=== PATIENT | female | born 1945 | race Asian ===

== ENCOUNTER 2020-10-05 20:43 | Inpatient (IN) | payer OTHER, MEDICARE ==
[~2020-10-05] VITALS: Ht 157.5 cm; Wt 137.1 kg
[2020-10-05] MEDS ORDERED: ASPI-728 PO (21:19)
[2020-10-05] MEDS ORDERED: APIX5TAB PO (21:19)
[2020-10-05] MEDS ORDERED: LOSA25TA21 PO (21:19)
[2020-10-05] MEDS ORDERED: INSLAN SQ (21:19)
[2020-10-05] MEDS ORDERED: INSNOV SQ (21:19)
[2020-10-05] MEDS ORDERED: ATOR10TA84 PO (21:19)
[2020-10-05] MEDS ORDERED: LEVO75 PO (21:19)
[2020-10-05 21:38] LABS: BASOPHILS % (AUTO) 0.2 % (0.0-2.0); EOSINOPHILS % (AUTO) 0 % (1.0-6.0); HEMATOCRIT 38.7 % (36-46); HEMOGLOBIN 12.6 g/dL (12.0-16.0); LYMPHOCYTES # (AUTO) 0.4 K/uL (1.0-4.8); LYMPHOCYTES % (AUTO) 7.7 % (22.0-44.0); MEAN CORPUSCULAR HEMOGLOBIN 28.8 pg (26.0-34.0); MEAN CORPUSCULAR HGB CONC 32.5 G/dL (31.0-37.0); MEAN CORPUSCULAR VOLUME 89 fL (80-100); MONOCYTES # (AUTO) 0.4 K/uL (0.1-1.0); MONOCYTES % (AUTO) 8.3 % (2.0-9.0); NEUTROPHILS % (AUTO) 83.8 % (40.0-70.0); PLATELET COUNT (AUTO) 190 K/uL (150-450); RED BLOOD CELL COUNT(AUTO) 4.38 MIL/uL (4.00-5.20); RED CELL DISTRIBUTION WIDTH 14.3 % (11.5-14.5)
[2020-10-05 21:47] LABS: CALCIUM, TOTAL 8.1 mg/dL (8.8-10.5); CREATININE 1.69 mg/dL (0.60-1.30); POTASSIUM 4.5 mmol/L (3.5-5.1)
[2020-10-05 21:52] LABS: INR 1.1 (0.9-1.1); PROTHROMBIN TIME 11.2 SEC (9.4-11.6)
[2020-10-05 22:12] LABS: ALBUMIN 2.4 g/dL (3.4-5.0); BILIRUBIN,TOTAL 0.7 mg/dL (0.1-1.0); TOTAL PROTEIN, SERUM 7.4 g/dL (6.4-8.2)
[2020-10-05] MEDS ORDERED: CefTRIAXone 1 GM/DEXTROSE 50 ML IV ONE (22:15)
[2020-10-05] MEDS ORDERED: AZITHROMYCIN 500 MG/NS 250 ML IV ONE (22:15)
[2020-10-05] MEDS ORDERED: ALBUTEROL SULFATE HFA 90 MCG/PUFF 8 GM INHALER IH ONE (22:15)
[2020-10-05 22:46] LABS: ABG BASE EXCESS -4.9 mmol/L (-2.0-3.0); ABG CARBOXYHEMOGLOBIN 0.4 % (0.0-1.5); ABG HCO3 21.1 mmol/L (22.0-26.0); ABG METHEMOGLOBIN 0.2 % (0.0-1.5); ABG OXYGEN CONTENT 17.1 mL/dL (15.0-23.0); ABG OXYGEN SATURATION 90.5 % (95.0-98.0); ABG PCO2 31 mmHg (35-45); ABG PH 7.419 (7.35-7.450); ABG TOTAL HEMOGLOBIN 13.5 G/dL (12.0-18.0); PO2, ARTERIAL BG 60.7 mmHg (75.0-83.0); SOURCE, BLOOD GAS ARTERIAL; TEMPERATURE, FAHRENHEIT, BG 98.6 FAHREN (96.0-98.6)
[2020-10-05 22:47] LABS: O2 DEVICE,BLOOD GAS CANNULA (ROOM AIR); SITE, BLOOD GAS RT RADIAL
[2020-10-05 23:03] LABS: D-DIMER 0.43 mg/L FEU (0.00-0.50)
[2020-10-05 23:12] LABS: LACTIC ACID 3.1 mmol/L (0.4-2.0)
[2020-10-05] MEDS ORDERED: DEXAMETHASONE SOD PHOS 4 MG/ML VIAL IVP ONE (23:15)
[2020-10-05] MEDS ORDERED: SODIUM CHLORIDE 0.9% 2,450 ML IV ONE (23:15)
[2020-10-05 23:21] LABS: COVID AG,FIA SOURCE NASAL SWAB
[2020-10-05 23:39] LABS: INFLUENZA TYPE A NEGATIVE FOR TYPE A (NEGATIVE); INFLUENZA TYPE B NEGATIVE FOR TYPE B (NEGATIVE)
[2020-10-06] MEDS ORDERED: SODIUM CHLORIDE 0.45% 500 ML IV SCH (00:15)
[2020-10-06] MEDS ORDERED: ACETAMINOPHEN 325 MG TABLET PO PRN (00:15)
[2020-10-06] MEDS ORDERED: ONDANSETRON HCL 4 MG/2 ML VIAL IVP PRN (00:15)
[2020-10-06] MEDS ORDERED: DEXTROSE 50%-WATER 25 GM/50 ML SYRINGE IVP PRN (00:30)
[2020-10-06] MEDS ORDERED: INSULIN REGULAR, HUMAN 100 UNITS/ML IVP ONE (00:30)
[2020-10-06 01:22] LABS: GLUCOSE,POINT OF CARE 373 MG/DL (70-110)
[2020-10-06 04:04] LABS: GLUCOSE,POINT OF CARE 310 MG/DL (70-110)
[2020-10-06 04:04] LABS: GLUCOSE,POINT OF CARE 325 MG/DL (70-110)
[2020-10-06 05:33] LABS: APPEARANCE,URINE CLOUDY (CLEAR); BILIRUBIN,URINE NEGATIVE (NEGATIVE); CREATININE,URINE RANDOM 110.4 mg/dL (30.0-125.0); GLUCOSE, URINE (UA) >=1000 mg/dL (NEGATIVE); KETONES,URINE NEGATIVE (NEGATIVE); LEUKOCYTE ESTERASE ,URINE SMALL (NEGATIVE); NITRATE,URINE NEGATIVE (NEGATIVE); OCCULT BLOOD,URINE NEGATIVE (NEGATIVE); PROTEIN,URINE POS 1+ (NEGATIVE); UROBILINOGEN,URINE 0.2 mg/dL (<=1.0)
[2020-10-06 05:37] LABS: BACTERIA,URINE Few /HPF (None Seen); RBC,URINE 0-2 /HPF (0-2); SQUAMOUS EPITHELIAL CELL,UR Few /LPF (None Seen)
[2020-10-06] MEDS: LEVOTHYROXINE SODIUM 75 MCG TABLET PO SCH (06:21)
[2020-10-06] MEDS: INSULIN LISPRO 100 UNITS/ML SQ PRN ×3 (06:22→18:16)
[2020-10-06 07:07] LABS: GLUCOSE,POINT OF CARE 282 MG/DL (70-110)
[2020-10-06] MEDS: ATORVASTATIN CALCIUM 10 MG TABLET PO SCH (09:00)
[2020-10-06] MEDS ORDERED: LOSARTAN POTASSIUM 25 MG TABLET PO SCH (09:00)
[2020-10-06 09:18] LABS: D-DIMER 0.76 mg/L FEU (0.00-0.50); PROTHROMBIN TIME 10.7 SEC (9.4-11.6)
[2020-10-06] MEDS ORDERED: BENZONATATE 100 MG CAPSULE ONE (09:37)
[2020-10-06 09:38] LABS: LACTIC ACID 2.6 mmol/L (0.4-2.0)
[2020-10-06 09:42] LABS: C-REACTIVE PROTEIN QUANT 5.8 mg/dL (0.00-0.30)
[2020-10-06] MEDS: BENZONATATE 100 MG CAPSULE PO PRN ×2 (09:43→19:27)
[2020-10-06] MEDS: ASPIRIN 81 MG CHEWABLE TABLET PO SCH (09:43)
[2020-10-06] MEDS: FAMOTIDINE 10 MG/ML 2 ML VIAL IVP SCH (09:43)
[2020-10-06] MEDS: APIXABAN 5 MG TABLET PO SCH (09:43)
[2020-10-06 10:42] LABS: GLUCOSE,POINT OF CARE 307 MG/DL (70-110)
[2020-10-06] MEDS: INSULIN GLARGINE,HUM.REC.ANLOG 100 UNITS/ML SQ SCH (10:59)
[2020-10-06 12:59] LABS: GLUCOSE,POINT OF CARE 305 MG/DL (70-110)
[2020-10-06] MEDS: DEXAMETHASONE SOD PHOS 4 MG/ML VIAL IVP SCH (15:07)
[2020-10-06 15:50] LABS: ABG A-A DIFF O2 610.3 mmHg (10-20.0); ABG BASE EXCESS -9.4 mmol/L (-2.0-3.0); ABG CARBOXYHEMOGLOBIN 0.3 % (0.0-1.5); ABG METHEMOGLOBIN 0.3 % (0.0-1.5); ABG OXYGEN CONTENT 18.3 mL/dL (15.0-23.0); ABG OXYGEN SATURATION 94.3 % (95.0-98.0); ABG OXYHEMOGLOBIN 93.7 % (94.0-100.0); ABG PCO2 29 mmHg (35-45); ABG PH 7.361 (7.35-7.450); ABG TOTAL HEMOGLOBIN 13.9 G/dL (12.0-18.0); PO2, ARTERIAL BG 73.8 mmHg (75.0-83.0); SITE, BLOOD GAS LFT RADIAL; SOURCE, BLOOD GAS ARTERIAL; TEMPERATURE, FAHRENHEIT, BG 98.6 FAHREN (96.0-98.6)
[2020-10-06 15:51] LABS: O2 DEVICE,BLOOD GAS NON REBREATHER (ROOM AIR)
[2020-10-06 17:33] LABS: CALCIUM, TOTAL 7.7 mg/dL (8.8-10.5); CREATININE 1.26 mg/dL (0.60-1.30); POTASSIUM 4.6 mmol/L (3.5-5.1)
[2020-10-06 18:03] LABS: GLUCOSE,POINT OF CARE 283 MG/DL (70-110)
[2020-10-06] MEDS: LORazepam 0.5 MG TABLET PO PRN (19:27)
[2020-10-06] MEDS ORDERED: REMDESIVIR 200 MG in SODIUM CHLORIDE 0.9% 250 ML IV ONE (20:00)
[2020-10-06] MEDS ORDERED: LORazepam 2 MG/ML VIAL ONE (22:10)
[2020-10-06] MEDS ORDERED: LORazepam 2 MG/ML VIAL IVP PRN (22:15)
[2020-10-06] MEDS ORDERED: LORazepam 2 MG/ML VIAL IVP ONE (22:15)
[2020-10-07] VITALS (10 sets, daily range): BP systolic 111–144; BP diastolic 58–116
[2020-10-07] MEDS ORDERED: SODIUM CHLORIDE 0.9% 1,000 ML ONE (00:25)
[2020-10-07] MEDS: FAMOTIDINE 10 MG/ML 2 ML VIAL IVP SCH (01:10)
[2020-10-07] MEDS: AZITHROMYCIN 500 MG/NS 250 ML IV SCH (01:11)
[2020-10-07] MEDS: APIXABAN 5 MG TABLET PO SCH ×3 (01:11→21:00)
[2020-10-07] MEDS: ATORVASTATIN CALCIUM 10 MG TABLET PO SCH ×2 (01:11→21:00)
[2020-10-07] MEDS: ZINC SULFATE 220 MG CAPSULE PO SCH ×2 (01:11→21:00)
[2020-10-07] MEDS: CefTRIAXone 1 GM/DEXTROSE 50 ML IV SCH (01:12)
[2020-10-07] MEDS: LEVOTHYROXINE SODIUM 75 MCG TABLET PO SCH (06:17)
[2020-10-07] MEDS: INSULIN LISPRO 100 UNITS/ML SQ PRN (06:24)
[2020-10-07] MEDS: CHOLECALCIFEROL (VIT D3) 1,000 UNITS [25 MCG] TABLET PO SCH (08:20)
[2020-10-07] MEDS: FAMOTIDINE 20 MG TABLET PO SCH (08:21)
[2020-10-07] MEDS: ASCORBIC ACID 500 MG TABLET PO SCH (08:22)
[2020-10-07] MEDS: LORazepam 0.5 MG TABLET PO PRN (08:22)
[2020-10-07] MEDS: ASPIRIN 81 MG CHEWABLE TABLET PO SCH (08:22)
[2020-10-07] MEDS: DEXAMETHASONE SOD PHOS 4 MG/ML VIAL IVP SCH (08:23)
[2020-10-07] MEDS: INSULIN GLARGINE,HUM.REC.ANLOG 100 UNITS/ML SQ SCH (08:47)
[2020-10-07 11:15] LABS: GLUCOMETER DEV NAME(LOC) 5N.1B; GLUCOSE,POINT OF CARE 320 MG/DL (70-110)
[2020-10-07] MEDS ORDERED: LORazepam 2 MG/ML VIAL IM ONE (12:00)
[2020-10-07] MEDS ORDERED: ADENOSINE 3 MG/ML 2 ML VIAL IVP ONE (12:45)
[2020-10-07] MEDS ORDERED: DIGOXIN 250 MCG/ML 2 ML AMP ONE (13:04)
[2020-10-07] MEDS ORDERED: DIGOXIN 250 MCG/ML 2 ML AMP IVP ONE (13:15)
[2020-10-07] MEDS ORDERED: DILTIAZEM HCL 5 MG/ML 5 ML VIAL IVP ONE (13:15)
[2020-10-07] MEDS: DILTIAZEM HCL 125 MG in DEXTROSE 5%-WATER 100 ML IV SCH ×2 (13:54→20:46)
[2020-10-07 15:00] LABS: ABG A-A DIFF O2 506.5 mmHg (10-20.0); ABG BASE EXCESS -10.9 mmol/L (-2.0-3.0); ABG CARBOXYHEMOGLOBIN 0.5 % (0.0-1.5); ABG HCO3 17.2 mmol/L (22.0-26.0); ABG METHEMOGLOBIN 0.3 % (0.0-1.5); ABG OXYGEN CONTENT 17.4 mL/dL (15.0-23.0); ABG OXYGEN SATURATION 94.5 % (95.0-98.0); ABG OXYHEMOGLOBIN 93.7 % (94.0-100.0); ABG PCO2 25 mmHg (35-45); ABG PH 7.373 (7.35-7.450); ABG TOTAL HEMOGLOBIN 13.2 G/dL (12.0-18.0); PO2, ARTERIAL BG 73.4 mmHg (75.0-83.0); SITE, BLOOD GAS RT RADIAL; SOURCE, BLOOD GAS ARTERIAL; TEMPERATURE, FAHRENHEIT, BG 98.6 FAHREN (96.0-98.6)
[2020-10-07 15:01] LABS: O2 DEVICE,BLOOD GAS BIPAP (ROOM AIR)
[2020-10-07] MEDS ORDERED: FentaNYL CITRATE PF 100 MCG/2 ML VIAL IVP ONE (19:45)
[2020-10-07 19:51] LABS: ABG A-A DIFF O2 611.9 mmHg (10-20.0); ABG BASE EXCESS -15.3 mmol/L (-2.0-3.0); ABG CARBOXYHEMOGLOBIN 0.2 % (0.0-1.5); ABG HCO3 13.4 mmol/L (22.0-26.0); ABG METHEMOGLOBIN 0.2 % (0.0-1.5); ABG OXYGEN CONTENT 16.1 mL/dL (15.0-23.0); ABG OXYGEN SATURATION 87.6 % (95.0-98.0); ABG OXYHEMOGLOBIN 87.2 % (94.0-100.0); ABG PCO2 35 mmHg (35-45); ABG TOTAL HEMOGLOBIN 13.1 G/dL (12.0-18.0); PO2, ARTERIAL BG 65.9 mmHg (75.0-83.0); SOURCE, BLOOD GAS ARTERIAL; TEMPERATURE, FAHRENHEIT, BG 98.6 FAHREN (96.0-98.6)
[2020-10-07 19:52] LABS: ABG PH 7.185 (7.35-7.450)
[2020-10-07 19:53] LABS: O2 DEVICE,BLOOD GAS VENTILATOR (ROOM AIR); PEEP,BG 8 cm H2O; SITE, BLOOD GAS RT RADIAL; VT, ABG 450 ml
[2020-10-07] MEDS ORDERED: MIDAZOLAM HCL 2 MG/2 ML VIAL IVP PRN (20:15)
[2020-10-07] MEDS ORDERED: SODIUM CHLORIDE 0.9% 500 ML IV ONE (20:15)
[2020-10-07] MEDS ORDERED: INSULIN GLARGINE,HUM.REC.ANLOG 100 UNITS/ML SQ SCH (20:15)
[2020-10-07 20:16] LABS: GLUCOSE,POINT OF CARE 313 MG/DL (70-110)
[2020-10-07] MEDS ORDERED: DEXMEDETOMIDINE HCL 200 MCG in SODIUM CHLORIDE 0.9% 48 ML IV PRN ×2 (20:30→20:45)
[2020-10-07] MEDS ORDERED: PHENYLEPHRINE 200 MG/D5%-WATER 250 ML IV PRN (20:30)
[2020-10-07 20:34] LABS: ANION GAP 16 mmol/L (8-16); CARBON DIOXIDE 17 mmol/L (22-29); CHLORIDE 109 mmol/L (98-107); CREATININE 1.67 mg/dL (0.60-1.30); GLOMERULAR FILTR. RATE CALC 30 mL/min (>60); GLUCOSE,RANDOM 342 mg/dL (70-110); SODIUM SERUM 142 mmol/L (136-145); UREA NITROGEN, BLOOD 38 mg/dL (7-18)
[2020-10-07] MEDS ORDERED: AMIODARONE HCL 360 MG in DEXTROSE 5%-WATER 242.8 ML IV ONE (20:45)
[2020-10-07] MEDS: NOREPINEPHRINE 4 MG/D5%-WATER 250 ML IV PRN (20:47)
[2020-10-07] MEDS: FentaNYL CITRATE PF 500 MCG in DEXTROSE 5%-WATER 90 ML IV PRN (20:47)
[2020-10-07 20:48] LABS: LACTIC ACID 7.5 mmol/L (0.4-2.0)
[2020-10-07] MEDS ORDERED: SODIUM BICARBONATE 100 MEQ in DEXTROSE 5%-0.45% SODIUM CHL 1,000 ML IV SCH (21:00)
[2020-10-07] MEDS ORDERED: SODIUM BICARBONATE [ADULT] 8.4% 50 MEQ/50 ML SYRINGE IVP ONE (21:00)
[2020-10-07 21:11] LABS: ABG A-A DIFF O2 614.6 mmHg (10-20.0); ABG BASE EXCESS -10.7 mmol/L (-2.0-3.0); ABG CARBOXYHEMOGLOBIN 0.6 % (0.0-1.5); ABG HCO3 16.5 mmol/L (22.0-26.0); ABG METHEMOGLOBIN 0.3 % (0.0-1.5); ABG OXYGEN CONTENT 15.1 mL/dL (15.0-23.0); ABG OXYGEN SATURATION 86.3 % (95.0-98.0); ABG OXYHEMOGLOBIN 85.5 % (94.0-100.0); ABG PCO2 37 mmHg (35-45); ABG PH 7.263 (7.35-7.450); ABG TOTAL HEMOGLOBIN 12.6 G/dL (12.0-18.0); PO2, ARTERIAL BG 59.1 mmHg (75.0-83.0); SOURCE, BLOOD GAS ARTERIAL; TEMPERATURE, FAHRENHEIT, BG 100.2 FAHREN (96.0-98.6)
[2020-10-07] MEDS ORDERED: MAGNESIUM SULFATE 2 GM/WATER 50 ML IV PRN (21:45)
[2020-10-07] MEDS ORDERED: INSULIN GLARGINE,HUM.REC.ANLOG 100 UNITS/ML SQ ONE (21:45)
[2020-10-07] MEDS ORDERED: POTASSIUM CHLORIDE 20 MEQ ER TABLET PO PRN (21:45)
[2020-10-07] MEDS ORDERED: MAGNESIUM OXIDE 400 MG TABLET PO PRN (21:45)
[2020-10-07] MEDS: PHENYLEPHRINE 200 MG/D5%-WATER 250 ML IV PRN (21:45)
[2020-10-07] MEDS ORDERED: POTASSIUM CHL 10 MEQ/WATER 50 ML IV PRN (21:45)
[2020-10-07] MEDS ORDERED: MAGNESIUM SULFATE 4 GM/WATER 100 ML IV PRN (21:45)
[2020-10-07 21:47] LABS: O2 DEVICE,BLOOD GAS VENTILATOR (ROOM AIR); PEEP,BG 10 cm H2O; SITE, BLOOD GAS A LINE; VT, ABG 400 ml
[2020-10-07] MEDS ORDERED: LORazepam 1 MG TABLET PO PRN (22:35)
[2020-10-07 23:00] LABS: GLUCOMETER DEV NAME(LOC) 5S.1; GLUCOSE,POINT OF CARE 246 MG/DL (70-110)
[2020-10-07] MEDS: REMDESIVIR 100 MG in SODIUM CHLORIDE 0.9% 250 ML IV SCH (23:14)
[2020-10-08] VITALS (20 sets, daily range): BP systolic 81–147; BP diastolic 45–67
[2020-10-08] MEDS: CefTRIAXone 1 GM/DEXTROSE 50 ML IV SCH ×2 (00:01→22:11)
[2020-10-08] MEDS: PROPOFOL 1000 MG/ISO-OSM 100 ML IV PRN ×2 (00:03→04:59)
[2020-10-08 00:33] LABS: ABG A-A DIFF O2 576.1 mmHg (10-20.0); ABG CARBOXYHEMOGLOBIN 0.3 % (0.0-1.5); ABG HCO3 21.1 mmol/L (22.0-26.0); ABG METHEMOGLOBIN 0.3 % (0.0-1.5); ABG OXYGEN CONTENT 17.1 mL/dL (15.0-23.0); ABG OXYGEN SATURATION 96.4 % (95.0-98.0); ABG OXYHEMOGLOBIN 95.8 % (94.0-100.0); ABG PCO2 46 mmHg (35-45); ABG PH 7.308 (7.35-7.450); ABG TOTAL HEMOGLOBIN 12.6 G/dL (12.0-18.0); PO2, ARTERIAL BG 91.6 mmHg (75.0-83.0); SOURCE, BLOOD GAS ARTERIAL; TEMPERATURE, FAHRENHEIT, BG 98.5 FAHREN (96.0-98.6)
[2020-10-08] MEDS: AZITHROMYCIN 500 MG/NS 250 ML IV SCH ×2 (00:55→23:00)
[2020-10-08 01:01] LABS: O2 DEVICE,BLOOD GAS VENTILATOR (ROOM AIR); SITE, BLOOD GAS A LINE
[2020-10-08 01:02] LABS: PEEP,BG 12 cm H2O; VT, ABG 400 ml
[2020-10-08] MEDS ORDERED: DEXMEDETOMIDINE HCL 400 MCG in SODIUM CHLORIDE 0.9% 96 ML IV PRN (02:15)
[2020-10-08] MEDS: FentaNYL CITRATE PF 500 MCG in DEXTROSE 5%-WATER 90 ML IV PRN ×3 (02:58→18:03)
[2020-10-08 04:08] LABS: GLUCOSE,POINT OF CARE 393 MG/DL (70-110)
[2020-10-08] MEDS: INSULIN LISPRO 100 UNITS/ML SQ PRN ×3 (05:28→18:21)
[2020-10-08 05:42] LABS: GLUCOSE,POINT OF CARE 374 MG/DL (70-110)
[2020-10-08 05:59] LABS: BASOPHILS % (AUTO) 0.2 % (0.0-2.0); EOSINOPHILS % (AUTO) 0 % (1.0-6.0); HEMATOCRIT 35.7 % (36-46); HEMOGLOBIN 11.5 g/dL (12.0-16.0); LYMPHOCYTES # (AUTO) 0.7 K/uL (1.0-4.8); MEAN CORPUSCULAR HEMOGLOBIN 28.7 pg (26.0-34.0); MEAN CORPUSCULAR HGB CONC 32.2 G/dL (31.0-37.0); MEAN CORPUSCULAR VOLUME 89 fL (80-100); MONOCYTES # (AUTO) 0.7 K/uL (0.1-1.0); MONOCYTES % (AUTO) 4.1 % (2.0-9.0); NEUTROPHILS # (AUTO) 15.3 K/uL (1.8-7.7); PLATELET COUNT (AUTO) 300 K/uL (150-450); RED CELL DISTRIBUTION WIDTH 14.6 % (11.5-14.5)
[2020-10-08 06:14] LABS: NEUTROPHILS % (AUTO) 91.7 % (40.0-70.0)
[2020-10-08] MEDS: LEVOTHYROXINE SODIUM 75 MCG TABLET PO SCH (06:30)
[2020-10-08] MEDS: INSULIN GLARGINE,HUM.REC.ANLOG 100 UNITS/ML SQ SCH ×2 (06:34→19:47)
[2020-10-08 06:56] LABS: ALBUMIN 2.1 g/dL (3.4-5.0); BILIRUBIN,TOTAL 0.5 mg/dL (0.1-1.0); C-REACTIVE PROTEIN QUANT 8.01 mg/dL (0.00-0.30); CALCIUM, TOTAL 7.3 mg/dL (8.8-10.5); CREATININE 1.59 mg/dL (0.60-1.30); MAGNESIUM 2.4 mg/dL (1.80-2.40); POTASSIUM 5.9 mmol/L (3.5-5.1); TOTAL PROTEIN, SERUM 6.4 g/dL (6.4-8.2)
[2020-10-08 07:24] LABS: GLUCOMETER DEV NAME(LOC) 5N.3; GLUCOSE,POINT OF CARE 276 MG/DL (70-110)
[2020-10-08] MEDS ORDERED: SODIUM POLYSTYRENE SULFONATE 15 GM/60 ML SUSPENSION BOTTLE PR ONE (07:45)
[2020-10-08] MEDS ORDERED: FUROSEMIDE 20 MG/2 ML VIAL IVP ONE (08:00)
[2020-10-08] MEDS ORDERED: SODIUM ZIRCONIUM CYCLOSILICATE 5 GM POWDER PACKET GT ONE (08:00)
[2020-10-08] MEDS ORDERED: DEXTROSE 50%-WATER 25 GM/50 ML SYRINGE IVP ONE (08:00)
[2020-10-08] MEDS ORDERED: SODIUM POLYSTYRENE SULFONATE 15 GM/60 ML SUSPENSION BOTTLE PO ONE (08:00)
[2020-10-08] MEDS ORDERED: INSULIN REGULAR, HUMAN 100 UNITS/ML IVP ONE (08:00)
[2020-10-08] MEDS ORDERED: SODIUM POLYSTYRENE SULFONATE 15 GM/60 ML SUSPENSION BOTTLE NG ONE (08:00)
[2020-10-08] MEDS ORDERED: HEPARIN SODIUM,PORCINE 5,000 UNITS/ML VIAL IVP PRN ×2 (08:00)
[2020-10-08 08:26] LABS: BASOPHILS % (AUTO) 0.1 % (0.0-2.0); LYMPHOCYTES # (AUTO) 0.8 K/uL (1.0-4.8)
[2020-10-08 08:40] LABS: INR 1.2 (0.9-1.1); PROTHROMBIN TIME 12.6 SEC (9.4-11.6)
[2020-10-08 08:43] LABS: EOSINOPHILS % (AUTO) 0 % (1.0-6.0); HEMOGLOBIN 11.9 g/dL (12.0-16.0); LYMPHOCYTES % (AUTO) 4.8 % (22.0-44.0); MEAN CORPUSCULAR HEMOGLOBIN 28.2 pg (26.0-34.0); MEAN CORPUSCULAR HGB CONC 31.3 G/dL (31.0-37.0); MEAN CORPUSCULAR VOLUME 90 fL (80-100); MONOCYTES # (AUTO) 0.6 K/uL (0.1-1.0); MONOCYTES % (AUTO) 3.3 % (2.0-9.0); NEUTROPHILS # (AUTO) 15.7 K/uL (1.8-7.7); PLATELET COUNT (AUTO) 292 K/uL (150-450); RED BLOOD CELL COUNT(AUTO) 4.21 MIL/uL (4.00-5.20); RED CELL DISTRIBUTION WIDTH 14.6 % (11.5-14.5)
[2020-10-08 08:44] LABS: NEUTROPHILS % (AUTO) 91.8 % (40.0-70.0)
[2020-10-08] MEDS: ASCORBIC ACID 500 MG TABLET PO SCH (09:00)
[2020-10-08] MEDS: METOPROLOL SUCCINATE 25 MG ER TABLET PO SCH ×2 (09:00→20:54)
[2020-10-08] MEDS: CHOLECALCIFEROL (VIT D3) 1,000 UNITS [25 MCG] TABLET PO SCH (09:00)
[2020-10-08] MEDS: CHLORHEXIDINE GLUCONATE 0.12% 15 ML UDCUP ORAL RINSE MM SCH ×2 (09:00→20:54)
[2020-10-08] MEDS: DEXAMETHASONE SOD PHOS 4 MG/ML VIAL IVP SCH (09:09)
[2020-10-08] MEDS: ASPIRIN 81 MG CHEWABLE TABLET PO SCH (09:13)
[2020-10-08] MEDS: FAMOTIDINE 20 MG TABLET PO SCH (09:14)
[2020-10-08] MEDS: HEPARIN SODIUM 25000 UNITS/D5W 250 ML IV PRN (09:47)
[2020-10-08 10:19] LABS: GLUCOSE,POINT OF CARE 337 MG/DL (70-110)
[2020-10-08 12:35] LABS: CREATININE 1.56 mg/dL (0.60-1.30); POTASSIUM 4.8 mmol/L (3.5-5.1)
[2020-10-08] MEDS ORDERED: DEXTROSE 50%-WATER 25 GM/50 ML SYRINGE IVP PRN (13:00)
[2020-10-08 13:31] LABS: GLUCOMETER DEV NAME(LOC) AHU.; GLUCOSE,POINT OF CARE 353 MG/DL (70-110)
[2020-10-08] MEDS: SODIUM BICARBONATE 75 MEQ in SODIUM CHLORIDE 0.45% 1,000 ML IV SCH (16:33)
[2020-10-08 18:04] LABS: GLUCOMETER DEV NAME(LOC) AHU.; GLUCOSE,POINT OF CARE 276 MG/DL (70-110)
[2020-10-08 18:37] LABS: OCCULT BLOOD,GASTRIC FLUID POSITIVE (NEGATIVE)
[2020-10-08] MEDS: REMDESIVIR 100 MG in SODIUM CHLORIDE 0.9% 250 ML IV SCH (20:46)
[2020-10-08] MEDS: ATORVASTATIN CALCIUM 10 MG TABLET PO SCH (20:54)
[2020-10-08] MEDS: ZINC SULFATE 220 MG CAPSULE PO SCH (20:55)
[2020-10-09] VITALS (25 sets, daily range): BP systolic 104–187; BP diastolic 34–76
[2020-10-09] MEDS: PROPOFOL 1000 MG/ISO-OSM 100 ML IV PRN ×4 (00:01→16:39)
[2020-10-09 00:42] LABS: CREATININE 1.38 mg/dL (0.60-1.30); POTASSIUM 3.9 mmol/L (3.5-5.1)
[2020-10-09 01:01] LABS: LACTIC ACID 3.2 mmol/L (0.4-2.0)
[2020-10-09] MEDS: SODIUM BICARBONATE 75 MEQ in SODIUM CHLORIDE 0.45% 1,000 ML IV SCH (02:05)
[2020-10-09 04:04] LABS: ABG A-A DIFF O2 624.9 mmHg (10-20.0); ABG BASE EXCESS -0.9 mmol/L (-2.0-3.0); ABG CARBOXYHEMOGLOBIN 0.3 % (0.0-1.5); ABG HCO3 23.4 mmol/L (22.0-26.0); ABG METHEMOGLOBIN 0.1 % (0.0-1.5); ABG OXYGEN CONTENT 13.5 mL/dL (15.0-23.0); ABG OXYGEN SATURATION 85.3 % (95.0-98.0); ABG PCO2 42 mmHg (35-45); ABG PH 7.382 (7.35-7.450); ABG TOTAL HEMOGLOBIN 11.3 G/dL (12.0-18.0); SOURCE, BLOOD GAS ARTERIAL; TEMPERATURE, FAHRENHEIT, BG 97.5 FAHREN (96.0-98.6)
[2020-10-09 05:48] LABS: SITE, BLOOD GAS ARTERIAL LINE
[2020-10-09 05:49] LABS: O2 DEVICE,BLOOD GAS VENTILATOR (ROOM AIR); PEEP,BG 10 cm H2O; VENT MODE, BG Press. Control Vent (ROOM AIR); VT, ABG 400 ml
[2020-10-09] MEDS: NOREPINEPHRINE 4 MG/D5%-WATER 250 ML IV PRN (05:52)
[2020-10-09 06:24] LABS: GLUCOMETER DEV NAME(LOC) AHU.; GLUCOSE,POINT OF CARE 198 MG/DL (70-110)
[2020-10-09] MEDS: LEVOTHYROXINE SODIUM 75 MCG TABLET PO SCH (06:30)
[2020-10-09] MEDS: INSULIN GLARGINE,HUM.REC.ANLOG 100 UNITS/ML SQ SCH ×2 (06:39→21:27)
[2020-10-09] MEDS: INSULIN LISPRO 100 UNITS/ML SQ PRN (06:40)
[2020-10-09 06:52] LABS: BASOPHILS % (AUTO) 0.1 % (0.0-2.0); EOSINOPHILS % (AUTO) 0 % (1.0-6.0); HEMATOCRIT 34.5 % (36-46); HEMOGLOBIN 11.2 g/dL (12.0-16.0); LYMPHOCYTES # (AUTO) 0.9 K/uL (1.0-4.8); LYMPHOCYTES % (AUTO) 5.6 % (22.0-44.0); MEAN CORPUSCULAR HGB CONC 32.4 G/dL (31.0-37.0); MEAN CORPUSCULAR VOLUME 90 fL (80-100); MONOCYTES # (AUTO) 0.4 K/uL (0.1-1.0); MONOCYTES % (AUTO) 2.6 % (2.0-9.0); NEUTROPHILS # (AUTO) 14.2 K/uL (1.8-7.7); PLATELET COUNT (AUTO) 232 K/uL (150-450); RED BLOOD CELL COUNT(AUTO) 3.85 MIL/uL (4.00-5.20); RED CELL DISTRIBUTION WIDTH 14.5 % (11.5-14.5)
[2020-10-09 07:01] LABS: NEUTROPHILS % (AUTO) 91.7 % (40.0-70.0)
[2020-10-09 07:14] LABS: ALBUMIN 1.9 g/dL (3.4-5.0); BILIRUBIN,TOTAL 0.5 mg/dL (0.1-1.0); CALCIUM, TOTAL 6.7 mg/dL (8.8-10.5); CREATININE 1.32 mg/dL (0.60-1.30); MAGNESIUM 2.2 mg/dL (1.80-2.40); POTASSIUM 3.9 mmol/L (3.5-5.1); TOTAL PROTEIN, SERUM 5.9 g/dL (6.4-8.2)
[2020-10-09] MEDS: FentaNYL CITRATE PF 500 MCG in DEXTROSE 5%-WATER 90 ML IV PRN ×2 (08:00→20:15)
[2020-10-09 08:17] LABS: ABG A-A DIFF O2 649.7 mmHg (10-20.0); ABG BASE EXCESS -1.6 mmol/L (-2.0-3.0); ABG CARBOXYHEMOGLOBIN 0.3 % (0.0-1.5); ABG METHEMOGLOBIN 0.2 % (0.0-1.5); ABG OXYGEN CONTENT 10.6 mL/dL (15.0-23.0); ABG OXYHEMOGLOBIN 62.7 % (94.0-100.0); ABG PCO2 34 mmHg (35-45); ABG PH 7.444 (7.35-7.450); SOURCE, BLOOD GAS ARTERIAL; TEMPERATURE, FAHRENHEIT, BG 98.6 FAHREN (96.0-98.6)
[2020-10-09] MEDS ORDERED: DEXTROSE 5%-WATER 1,000 ML IV ONE (08:30)
[2020-10-09 08:44] LABS: PO2, ARTERIAL BG 29.7 mmHg (75.0-83.0)
[2020-10-09 08:45] LABS: O2 DEVICE,BLOOD GAS BAG VALVE MASK (ROOM AIR); SITE, BLOOD GAS ARTERIAL LINE
[2020-10-09] MEDS: METOPROLOL SUCCINATE 25 MG ER TABLET PO SCH ×2 (09:00→21:25)
[2020-10-09] MEDS ORDERED: SODIUM ZIRCONIUM CYCLOSILICATE 5 GM POWDER PACKET PO SCH (09:00)
[2020-10-09] MEDS: FAMOTIDINE 20 MG TABLET PO SCH (09:00)
[2020-10-09] MEDS: ASCORBIC ACID 500 MG TABLET PO SCH (09:00)
[2020-10-09] MEDS: CHOLECALCIFEROL (VIT D3) 1,000 UNITS [25 MCG] TABLET PO SCH (09:00)
[2020-10-09] MEDS: ASPIRIN 81 MG CHEWABLE TABLET PO SCH (09:00)
[2020-10-09] MEDS: CHLORHEXIDINE GLUCONATE 0.12% 15 ML UDCUP ORAL RINSE MM SCH ×2 (09:00→21:00)
[2020-10-09 09:30] LABS: ABG A-A DIFF O2 620.8 mmHg (10-20.0); ABG BASE EXCESS -0.6 mmol/L (-2.0-3.0); ABG CARBOXYHEMOGLOBIN 0.3 % (0.0-1.5); ABG HCO3 24.2 mmol/L (22.0-26.0); ABG METHEMOGLOBIN 0.1 % (0.0-1.5); ABG OXYGEN CONTENT 15.3 mL/dL (15.0-23.0); ABG OXYGEN SATURATION 93.5 % (95.0-98.0); ABG OXYHEMOGLOBIN 93.1 % (94.0-100.0); ABG PCO2 34 mmHg (35-45); ABG PH 7.452 (7.35-7.450); ABG TOTAL HEMOGLOBIN 11.7 G/dL (12.0-18.0); PO2, ARTERIAL BG 60.7 mmHg (75.0-83.0); SOURCE, BLOOD GAS ARTERIAL; TEMPERATURE, FAHRENHEIT, BG 96.6 FAHREN (96.0-98.6)
[2020-10-09 09:42] LABS: O2 DEVICE,BLOOD GAS VENTILATOR (ROOM AIR); SITE, BLOOD GAS ARTERIAL LINE; VT, ABG 400 ml
[2020-10-09 09:43] LABS: PEEP,BG 10 cm H2O
[2020-10-09] MEDS: DEXAMETHASONE SOD PHOS 4 MG/ML VIAL IVP SCH (10:27)
[2020-10-09] MEDS: HEPARIN SODIUM 25000 UNITS/D5W 250 ML IV PRN (10:40)
[2020-10-09] MEDS: PANTOPRAZOLE SODIUM 40 MG/VIAL IVP SCH (12:43)
[2020-10-09 12:59] LABS: GLUCOMETER DEV NAME(LOC) AHU.; GLUCOSE,POINT OF CARE 126 MG/DL (70-110)
[2020-10-09] MEDS: DILTIAZEM HCL 125 MG in DEXTROSE 5%-WATER 100 ML IV SCH (13:15)
[2020-10-09 15:47] LABS: ABG A-A DIFF O2 618.8 mmHg (10-20.0); ABG BASE EXCESS 0.5 mmol/L (-2.0-3.0); ABG CARBOXYHEMOGLOBIN 0.3 % (0.0-1.5); ABG HCO3 24.9 mmol/L (22.0-26.0); ABG METHEMOGLOBIN 0.1 % (0.0-1.5); ABG OXYGEN CONTENT 14.4 mL/dL (15.0-23.0); ABG OXYGEN SATURATION 92.5 % (95.0-98.0); ABG OXYHEMOGLOBIN 92.1 % (94.0-100.0); ABG PCO2 38 mmHg (35-45); ABG PH 7.436 (7.35-7.450); ABG TOTAL HEMOGLOBIN 11.1 G/dL (12.0-18.0); PO2, ARTERIAL BG 59.2 mmHg (75.0-83.0); SOURCE, BLOOD GAS ARTERIAL; TEMPERATURE, FAHRENHEIT, BG 96.8 FAHREN (96.0-98.6)
[2020-10-09 15:49] LABS: O2 DEVICE,BLOOD GAS VENTILATOR (ROOM AIR); PEEP,BG 10 cm H2O; SITE, BLOOD GAS ARTERIAL LINE; VT, ABG 400 ml
[2020-10-09 19:03] LABS: GLUCOMETER DEV NAME(LOC) AHU.; GLUCOSE,POINT OF CARE 115 MG/DL (70-110)
[2020-10-09 21:14] LABS: GLUCOMETER DEV NAME(LOC) AHU.; GLUCOSE,POINT OF CARE 128 MG/DL (70-110)
[2020-10-09] MEDS: ATORVASTATIN CALCIUM 10 MG TABLET PO SCH (21:22)
[2020-10-09] MEDS: ZINC SULFATE 220 MG CAPSULE PO SCH (21:22)
[2020-10-09] MEDS: REMDESIVIR 100 MG in SODIUM CHLORIDE 0.9% 250 ML IV SCH (21:36)
[2020-10-09] MEDS: CefTRIAXone 1 GM/DEXTROSE 50 ML IV SCH (22:56)
[2020-10-09] MEDS: AZITHROMYCIN 500 MG/NS 250 ML IV SCH (23:30)
[2020-10-10] VITALS (27 sets, daily range): BP systolic 117–187; BP diastolic 45–65
[2020-10-10 03:17] LABS: GLUCOMETER DEV NAME(LOC) AHU.; GLUCOSE,POINT OF CARE 125 MG/DL (70-110)
[2020-10-10] MEDS ORDERED: APIXABAN 5 MG TABLET GT SCH (05:00)
[2020-10-10] MEDS: FentaNYL CITRATE PF 500 MCG in DEXTROSE 5%-WATER 90 ML IV PRN ×3 (05:53→19:46)
[2020-10-10] MEDS: LEVOTHYROXINE SODIUM 75 MCG TABLET PO SCH (06:01)
[2020-10-10] MEDS: INSULIN GLARGINE,HUM.REC.ANLOG 100 UNITS/ML SQ SCH ×2 (06:03→21:01)
[2020-10-10 06:30] LABS: GLUCOMETER DEV NAME(LOC) AHU.; GLUCOSE,POINT OF CARE 138 MG/DL (70-110)
[2020-10-10] MEDS: PROPOFOL 1000 MG/ISO-OSM 100 ML IV PRN ×3 (07:12→21:16)
[2020-10-10] MEDS: METOPROLOL SUCCINATE 25 MG ER TABLET PO SCH (09:00)
[2020-10-10] MEDS: CHLORHEXIDINE GLUCONATE 0.12% 15 ML UDCUP ORAL RINSE MM SCH ×2 (09:00→21:00)
[2020-10-10 09:35] LABS: BASOPHILS % (AUTO) 0.4 % (0.0-2.0); EOSINOPHILS % (AUTO) 0 % (1.0-6.0); HEMATOCRIT 30.4 % (36-46); HEMOGLOBIN 9.9 g/dL (12.0-16.0); LYMPHOCYTES # (AUTO) 0.5 K/uL (1.0-4.8); LYMPHOCYTES % (AUTO) 4.5 % (22.0-44.0); MEAN CORPUSCULAR HEMOGLOBIN 28.6 pg (26.0-34.0); MEAN CORPUSCULAR HGB CONC 32.4 G/dL (31.0-37.0); MEAN CORPUSCULAR VOLUME 88 fL (80-100); MONOCYTES # (AUTO) 0.3 K/uL (0.1-1.0); NEUTROPHILS # (AUTO) 10.2 K/uL (1.8-7.7); PLATELET COUNT (AUTO) 177 K/uL (150-450); RED BLOOD CELL COUNT(AUTO) 3.45 MIL/uL (4.00-5.20); RED CELL DISTRIBUTION WIDTH 14.5 % (11.5-14.5)
[2020-10-10 09:37] LABS: NEUTROPHILS % (AUTO) 92.1 % (40.0-70.0)
[2020-10-10 09:48] LABS: ALBUMIN 1.6 g/dL (3.4-5.0); BILIRUBIN,TOTAL 0.4 mg/dL (0.1-1.0); C-REACTIVE PROTEIN QUANT 6.1 mg/dL (0.00-0.30); CALCIUM, TOTAL 6.8 mg/dL (8.8-10.5); CREATININE 1.12 mg/dL (0.60-1.30); MAGNESIUM 2.3 mg/dL (1.80-2.40); POTASSIUM 3.6 mmol/L (3.5-5.1); TOTAL PROTEIN, SERUM 5.1 g/dL (6.4-8.2)
[2020-10-10 10:49] LABS: GLUCOMETER DEV NAME(LOC) AHU.; GLUCOSE,POINT OF CARE 105 MG/DL (70-110)
[2020-10-10] MEDS: APIXABAN 5 MG TABLET GT SCH ×2 (10:52→22:03)
[2020-10-10] MEDS: DEXAMETHASONE SOD PHOS 4 MG/ML VIAL IVP SCH (10:53)
[2020-10-10] MEDS: PANTOPRAZOLE SODIUM 40 MG/VIAL IVP SCH (10:53)
[2020-10-10] MEDS: ASPIRIN 81 MG CHEWABLE TABLET PO SCH (10:53)
[2020-10-10] MEDS: ASCORBIC ACID 500 MG TABLET PO SCH (10:54)
[2020-10-10] MEDS: CHOLECALCIFEROL (VIT D3) 1,000 UNITS [25 MCG] TABLET PO SCH (10:54)
[2020-10-10] MEDS: FAMOTIDINE 20 MG TABLET PO SCH (10:54)
[2020-10-10] MEDS: DILTIAZEM HCL 125 MG in DEXTROSE 5%-WATER 100 ML IV SCH (13:15)
[2020-10-10] MEDS ORDERED: CISATRACURIUM BESYLATE 2 MG/ML 10 ML VIAL IVP ONE (13:30)
[2020-10-10] MEDS: CISATRACURIUM BESYLATE 50 MG in DEXTROSE 5%-WATER 245 ML IV PRN ×2 (14:17→19:45)
[2020-10-10 15:21] LABS: GLUCOMETER DEV NAME(LOC) AHU.; GLUCOSE,POINT OF CARE 117 MG/DL (70-110)
[2020-10-10 17:35] LABS: ABG BASE EXCESS 1.4 mmol/L (-2.0-3.0); ABG CARBOXYHEMOGLOBIN 0.3 % (0.0-1.5); ABG HCO3 25.6 mmol/L (22.0-26.0); ABG METHEMOGLOBIN 0.3 % (0.0-1.5); ABG OXYGEN CONTENT 16.5 mL/dL (15.0-23.0); ABG OXYGEN SATURATION 99.4 % (95.0-98.0); ABG OXYHEMOGLOBIN 98.8 % (94.0-100.0); ABG PCO2 39 mmHg (35-45); ABG PH 7.433 (7.35-7.450); ABG TOTAL HEMOGLOBIN 11.5 G/dL (12.0-18.0); PO2, ARTERIAL BG 214.3 mmHg (75.0-83.0); SOURCE, BLOOD GAS ARTERIAL
[2020-10-10 18:16] LABS: GLUCOMETER DEV NAME(LOC) AHU.; GLUCOSE,POINT OF CARE 126 MG/DL (70-110)
[2020-10-10] MEDS: INSULIN LISPRO 100 UNITS/ML SQ PRN (18:24)
[2020-10-10] MEDS ORDERED: HydrALAZINE HCL 20 MG/ML VIAL ONE (21:23)
[2020-10-10] MEDS: REMDESIVIR 100 MG in SODIUM CHLORIDE 0.9% 250 ML IV SCH (22:03)
[2020-10-10] MEDS: ZINC SULFATE 220 MG CAPSULE PO SCH (22:03)
[2020-10-10] MEDS: ATORVASTATIN CALCIUM 10 MG TABLET PO SCH (22:03)
[2020-10-10 22:42] LABS: GLUCOMETER DEV NAME(LOC) AHU.; GLUCOSE,POINT OF CARE 155 MG/DL (70-110)
[2020-10-10] MEDS: CefTRIAXone 1 GM/DEXTROSE 50 ML IV SCH (23:17)
[2020-10-10] MEDS: AZITHROMYCIN 500 MG/NS 250 ML IV SCH (23:58)
[2020-10-11] VITALS (23 sets, daily range): BP systolic 104–190; BP diastolic 42–69
[2020-10-11] MEDS: PROPOFOL 1000 MG/ISO-OSM 100 ML IV PRN ×5 (01:36→22:31)
[2020-10-11] MEDS: FentaNYL CITRATE PF 500 MCG in DEXTROSE 5%-WATER 90 ML IV PRN ×4 (02:35→22:32)
[2020-10-11] MEDS: CISATRACURIUM BESYLATE 50 MG in DEXTROSE 5%-WATER 245 ML IV PRN ×4 (02:54→22:33)
[2020-10-11 05:36] LABS: BASOPHILS % (AUTO) 0.3 % (0.0-2.0); EOSINOPHILS % (AUTO) 0 % (1.0-6.0); HEMATOCRIT 31.3 % (36-46); HEMOGLOBIN 10.2 g/dL (12.0-16.0); LYMPHOCYTES # (AUTO) 0.3 K/uL (1.0-4.8); LYMPHOCYTES % (AUTO) 2.8 % (22.0-44.0); MEAN CORPUSCULAR HEMOGLOBIN 28.9 pg (26.0-34.0); MEAN CORPUSCULAR HGB CONC 32.6 G/dL (31.0-37.0); MEAN CORPUSCULAR VOLUME 89 fL (80-100); MONOCYTES # (AUTO) 0.5 K/uL (0.1-1.0); MONOCYTES % (AUTO) 4.2 % (2.0-9.0); PLATELET COUNT (AUTO) 164 K/uL (150-450); RED BLOOD CELL COUNT(AUTO) 3.53 MIL/uL (4.00-5.20); RED CELL DISTRIBUTION WIDTH 14.4 % (11.5-14.5)
[2020-10-11 05:50] LABS: NEUTROPHILS % (AUTO) 92.7 % (40.0-70.0)
[2020-10-11] MEDS: LEVOTHYROXINE SODIUM 75 MCG TABLET PO SCH (05:57)
[2020-10-11 05:58] LABS: ALBUMIN 1.4 g/dL (3.4-5.0); BILIRUBIN,TOTAL 0.4 mg/dL (0.1-1.0); CALCIUM, TOTAL 6.6 mg/dL (8.8-10.5); CREATININE 1.06 mg/dL (0.60-1.30); MAGNESIUM 2.3 mg/dL (1.80-2.40); POTASSIUM 3.6 mmol/L (3.5-5.1); TOTAL PROTEIN, SERUM 4.9 g/dL (6.4-8.2)
[2020-10-11] MEDS: INSULIN GLARGINE,HUM.REC.ANLOG 100 UNITS/ML SQ SCH ×2 (06:05→20:19)
[2020-10-11] MEDS: INSULIN LISPRO 100 UNITS/ML SQ PRN (06:07)
[2020-10-11 06:35] LABS: GLUCOMETER DEV NAME(LOC) AHU.; GLUCOSE,POINT OF CARE 246 MG/DL (70-110)
[2020-10-11 06:43] LABS: O2 DEVICE,BLOOD GAS VENTILATOR (ROOM AIR); SITE, BLOOD GAS ARTERIAL LINE; VT, ABG 400 ml
[2020-10-11 06:44] LABS: PEEP,BG 10 cm H2O
[2020-10-11] MEDS: PANTOPRAZOLE SODIUM 40 MG/VIAL IVP SCH (10:26)
[2020-10-11] MEDS: CHLORHEXIDINE GLUCONATE 0.12% 15 ML UDCUP ORAL RINSE MM SCH ×2 (10:26→20:20)
[2020-10-11] MEDS: DEXAMETHASONE SOD PHOS 4 MG/ML VIAL IVP SCH (10:26)
[2020-10-11] MEDS: APIXABAN 5 MG TABLET GT SCH ×2 (10:26→20:16)
[2020-10-11] MEDS: FAMOTIDINE 20 MG TABLET PO SCH (10:27)
[2020-10-11] MEDS: ASPIRIN 81 MG CHEWABLE TABLET PO SCH (10:27)
[2020-10-11] MEDS: FUROSEMIDE 20 MG/2 ML VIAL IVP SCH (10:59)
[2020-10-11] MEDS: ASCORBIC ACID 500 MG TABLET PO SCH (11:46)
[2020-10-11] MEDS: CHOLECALCIFEROL (VIT D3) 1,000 UNITS [25 MCG] TABLET PO SCH (11:46)
[2020-10-11 12:15] LABS: ABG A-A DIFF O2 616.3 mmHg (10-20.0); ABG BASE EXCESS 1.5 mmol/L (-2.0-3.0); ABG CARBOXYHEMOGLOBIN 0.4 % (0.0-1.5); ABG HCO3 25.5 mmol/L (22.0-26.0); ABG METHEMOGLOBIN 0.3 % (0.0-1.5); ABG OXYGEN CONTENT 13.4 mL/dL (15.0-23.0); ABG OXYGEN SATURATION 93.5 % (95.0-98.0); ABG OXYHEMOGLOBIN 92.8 % (94.0-100.0); ABG PCO2 41 mmHg (35-45); ABG PH 7.421 (7.35-7.450); ABG TOTAL HEMOGLOBIN 10.2 G/dL (12.0-18.0); O2 DEVICE,BLOOD GAS VENTILATOR (ROOM AIR); PEEP,BG 10 cm H2O; PO2, ARTERIAL BG 60.9 mmHg (75.0-83.0); SITE, BLOOD GAS ARTERIAL LINE; SOURCE, BLOOD GAS ARTERIAL; VT, ABG 400 ml
[2020-10-11] MEDS: DILTIAZEM HCL 125 MG in DEXTROSE 5%-WATER 100 ML IV SCH (13:15)
[2020-10-11 15:36] LABS: PHOSPHORUS 3.8 mg/dL (2.5-4.9)
[2020-10-11] MEDS: HydrALAZINE HCL 20 MG/ML VIAL IVP PRN (16:52)
[2020-10-11 19:10] LABS: GLUCOMETER DEV NAME(LOC) AHU.; GLUCOSE,POINT OF CARE 189 MG/DL (70-110)
[2020-10-11 19:10] LABS: GLUCOMETER DEV NAME(LOC) AHU.; GLUCOSE,POINT OF CARE 199 MG/DL (70-110)
[2020-10-11] MEDS: ATORVASTATIN CALCIUM 10 MG TABLET PO SCH (20:17)
[2020-10-12] VITALS (17 sets, daily range): BP systolic 104–208; BP diastolic 49–68
[2020-10-12] MEDS: INSULIN LISPRO 100 UNITS/ML SQ PRN ×2 (00:23→20:32)
[2020-10-12] MEDS: ZINC SULFATE 220 MG CAPSULE PO SCH ×2 (00:25→21:00)
[2020-10-12 00:29] LABS: GLUCOMETER DEV NAME(LOC) AHU.; GLUCOSE,POINT OF CARE 222 MG/DL (70-110)
[2020-10-12] MEDS: FentaNYL CITRATE PF 500 MCG in DEXTROSE 5%-WATER 90 ML IV PRN ×3 (03:26→20:39)
[2020-10-12] MEDS: CISATRACURIUM BESYLATE 50 MG in DEXTROSE 5%-WATER 245 ML IV PRN (04:00)
[2020-10-12 04:28] LABS: BASOPHILS % (AUTO) 0.2 % (0.0-2.0); EOSINOPHILS % (AUTO) 0 % (1.0-6.0); HEMATOCRIT 30.3 % (36-46); HEMOGLOBIN 9.9 g/dL (12.0-16.0); LYMPHOCYTES # (AUTO) 0.3 K/uL (1.0-4.8); LYMPHOCYTES % (AUTO) 3.2 % (22.0-44.0); MEAN CORPUSCULAR HEMOGLOBIN 28.9 pg (26.0-34.0); MEAN CORPUSCULAR HGB CONC 32.6 G/dL (31.0-37.0); MEAN CORPUSCULAR VOLUME 89 fL (80-100); MONOCYTES # (AUTO) 0.4 K/uL (0.1-1.0); MONOCYTES % (AUTO) 4.3 % (2.0-9.0); NEUTROPHILS # (AUTO) 8.9 K/uL (1.8-7.7); PLATELET COUNT (AUTO) 147 K/uL (150-450); RED BLOOD CELL COUNT(AUTO) 3.42 MIL/uL (4.00-5.20); RED CELL DISTRIBUTION WIDTH 14.5 % (11.5-14.5)
[2020-10-12 04:45] LABS: NEUTROPHILS % (AUTO) 92.3 % (40.0-70.0)
[2020-10-12 04:47] LABS: ALBUMIN 1.3 g/dL (3.4-5.0); BILIRUBIN,TOTAL 0.4 mg/dL (0.1-1.0); CALCIUM, TOTAL 6.9 mg/dL (8.8-10.5); CREATININE 1.11 mg/dL (0.60-1.30); MAGNESIUM 2.4 mg/dL (1.80-2.40); POTASSIUM 3.7 mmol/L (3.5-5.1); TOTAL PROTEIN, SERUM 4.9 g/dL (6.4-8.2)
[2020-10-12] MEDS: LEVOTHYROXINE SODIUM 75 MCG TABLET PO SCH (05:24)
[2020-10-12] MEDS: INSULIN GLARGINE,HUM.REC.ANLOG 100 UNITS/ML SQ SCH ×2 (05:27→20:40)
[2020-10-12 05:31] LABS: GLUCOMETER DEV NAME(LOC) AHU.; GLUCOSE,POINT OF CARE 155 MG/DL (70-110)
[2020-10-12 09:25] LABS: GLUCOMETER DEV NAME(LOC) AHU.; GLUCOSE,POINT OF CARE 107 MG/DL (70-110)
[2020-10-12] MEDS ORDERED: LABETALOL HCL 5 MG/ML 20 ML VIAL IVP STA (10:08)
[2020-10-12] MEDS: FUROSEMIDE 20 MG/2 ML VIAL IVP SCH (12:41)
[2020-10-12] MEDS: HydrALAZINE HCL 20 MG/ML VIAL IVP PRN (12:41)
[2020-10-12] MEDS: CHLORHEXIDINE GLUCONATE 0.12% 15 ML UDCUP ORAL RINSE MM SCH (12:41)
[2020-10-12] MEDS: PANTOPRAZOLE SODIUM 40 MG/VIAL IVP SCH (12:42)
[2020-10-12] MEDS: CHOLECALCIFEROL (VIT D3) 1,000 UNITS [25 MCG] TABLET PO SCH (12:43)
[2020-10-12] MEDS: DEXAMETHASONE SOD PHOS 4 MG/ML VIAL IVP SCH (12:43)
[2020-10-12] MEDS: FAMOTIDINE 20 MG TABLET PO SCH (12:43)
[2020-10-12] MEDS: ASCORBIC ACID 500 MG TABLET PO SCH (12:43)
[2020-10-12] MEDS: APIXABAN 5 MG TABLET GT SCH ×2 (12:44→21:00)
[2020-10-12] MEDS: ASPIRIN 81 MG CHEWABLE TABLET PO SCH (12:44)
[2020-10-12] MEDS: DILTIAZEM HCL 125 MG in DEXTROSE 5%-WATER 100 ML IV SCH (13:15)
[2020-10-12 14:36] LABS: GLUCOMETER DEV NAME(LOC) AHU.; GLUCOSE,POINT OF CARE 130 MG/DL (70-110)
[2020-10-12] MEDS: NiCARDipine HCL 25 MG in SODIUM CHLORIDE 0.9% 240 ML IV PRN ×2 (15:23→21:37)
[2020-10-12] MEDS ORDERED: SODIUM CHLORIDE 0.9% 250 ML IV ONE (16:50)
[2020-10-12 18:14] LABS: GLUCOMETER DEV NAME(LOC) AHU.; GLUCOSE,POINT OF CARE 194 MG/DL (70-110)
[2020-10-12] MEDS: PROPOFOL 1000 MG/ISO-OSM 100 ML IV PRN (18:40)
[2020-10-12 20:50] LABS: GLUCOMETER DEV NAME(LOC) AHU.; GLUCOSE,POINT OF CARE 213 MG/DL (70-110)
[2020-10-12] MEDS: ATORVASTATIN CALCIUM 10 MG TABLET PO SCH (21:00)
[2020-10-13] VITALS (12 sets, daily range): BP systolic 83–165; BP diastolic 46–74
[2020-10-13] MEDS: FentaNYL CITRATE PF 500 MCG in DEXTROSE 5%-WATER 90 ML IV PRN ×3 (01:10→22:03)
[2020-10-13] MEDS: CISATRACURIUM BESYLATE 50 MG in DEXTROSE 5%-WATER 245 ML IV PRN (02:11)
[2020-10-13] MEDS: NiCARDipine HCL 25 MG in SODIUM CHLORIDE 0.9% 240 ML IV PRN (02:13)
[2020-10-13] MEDS: CHLORHEXIDINE GLUCONATE 0.12% 15 ML UDCUP ORAL RINSE MM SCH ×3 (02:13→21:57)
[2020-10-13 05:15] LABS: D-DIMER 4.94 mg/L FEU (0.00-0.50)
[2020-10-13 05:50] LABS: GLUCOMETER DEV NAME(LOC) AHU.; GLUCOSE,POINT OF CARE 178 MG/DL (70-110)
[2020-10-13] MEDS: PROPOFOL 1000 MG/ISO-OSM 100 ML IV PRN ×2 (05:53→06:05)
[2020-10-13] MEDS: LEVOTHYROXINE SODIUM 75 MCG TABLET PO SCH (06:30)
[2020-10-13 06:58] LABS: CALCIUM, TOTAL 7.6 mg/dL (8.8-10.5); CREATININE 1.16 mg/dL (0.60-1.30)
[2020-10-13 07:07] LABS: C-REACTIVE PROTEIN QUANT 8.13 mg/dL (0.00-0.30)
[2020-10-13] MEDS: ASPIRIN 81 MG CHEWABLE TABLET PO SCH (09:00)
[2020-10-13] MEDS: CHOLECALCIFEROL (VIT D3) 1,000 UNITS [25 MCG] TABLET PO SCH (09:00)
[2020-10-13] MEDS: APIXABAN 5 MG TABLET GT SCH ×2 (09:00→21:54)
[2020-10-13] MEDS: FAMOTIDINE 20 MG TABLET PO SCH (09:00)
[2020-10-13] MEDS: ASCORBIC ACID 500 MG TABLET PO SCH (09:00)
[2020-10-13] MEDS: NOREPINEPHRINE 4 MG/D5%-WATER 250 ML IV PRN (09:02)
[2020-10-13] MEDS: PANTOPRAZOLE SODIUM 40 MG/VIAL IVP SCH (10:34)
[2020-10-13] MEDS: DEXAMETHASONE SOD PHOS 4 MG/ML VIAL IVP SCH (10:36)
[2020-10-13] MEDS: FUROSEMIDE 20 MG/2 ML VIAL IVP SCH (10:42)
[2020-10-13 11:23] LABS: GLUCOMETER DEV NAME(LOC) AHU.; GLUCOSE,POINT OF CARE 186 MG/DL (70-110)
[2020-10-13] MEDS: INSULIN GLARGINE,HUM.REC.ANLOG 100 UNITS/ML SQ SCH ×2 (11:50→22:02)
[2020-10-13 12:59] LABS: GLUCOMETER DEV NAME(LOC) AHU.; GLUCOSE,POINT OF CARE 207 MG/DL (70-110)
[2020-10-13] MEDS: DILTIAZEM HCL 125 MG in DEXTROSE 5%-WATER 100 ML IV SCH (13:15)
[2020-10-13] MEDS: INSULIN LISPRO 100 UNITS/ML SQ PRN ×2 (13:50→18:41)
[2020-10-13] MEDS: LABETALOL HCL 5 MG/ML 20 ML VIAL IVP SCH ×2 (18:44→21:00)
[2020-10-13 19:01] LABS: GLUCOMETER DEV NAME(LOC) AHU.; GLUCOSE,POINT OF CARE 270 MG/DL (70-110)
[2020-10-13] MEDS: ZINC SULFATE 220 MG CAPSULE PO SCH (21:54)
[2020-10-13] MEDS: ATORVASTATIN CALCIUM 10 MG TABLET PO SCH (22:57)
[2020-10-14] VITALS (15 sets, daily range): BP systolic 106–194; BP diastolic 45–89
[2020-10-14] MEDS: CISATRACURIUM BESYLATE 50 MG in DEXTROSE 5%-WATER 245 ML IV PRN ×2 (00:28→23:17)
[2020-10-14] MEDS: PROPOFOL 1000 MG/ISO-OSM 100 ML IV PRN ×4 (01:47→20:00)
[2020-10-14 02:07] LABS: GLUCOMETER DEV NAME(LOC) AHU.; GLUCOSE,POINT OF CARE 233 MG/DL (70-110)
[2020-10-14] MEDS: INSULIN LISPRO 100 UNITS/ML SQ PRN ×4 (03:28→18:15)
[2020-10-14] MEDS: FentaNYL CITRATE PF 500 MCG in DEXTROSE 5%-WATER 90 ML IV PRN ×2 (04:11→09:46)
[2020-10-14 05:32] LABS: GLUCOMETER DEV NAME(LOC) AHU.; GLUCOSE,POINT OF CARE 264 MG/DL (70-110)
[2020-10-14 06:14] LABS: D-DIMER 2.27 mg/L FEU (0.00-0.50)
[2020-10-14] MEDS: LEVOTHYROXINE SODIUM 75 MCG TABLET PO SCH (06:21)
[2020-10-14] MEDS: INSULIN GLARGINE,HUM.REC.ANLOG 100 UNITS/ML SQ SCH ×2 (06:36→18:14)
[2020-10-14] MEDS: NOREPINEPHRINE 4 MG/D5%-WATER 250 ML IV PRN (06:37)
[2020-10-14 06:44] LABS: ALBUMIN 1.4 g/dL (3.4-5.0); BILIRUBIN,TOTAL 0.7 mg/dL (0.1-1.0); C-REACTIVE PROTEIN QUANT 5.25 mg/dL (0.00-0.30); CALCIUM, TOTAL 7.6 mg/dL (8.8-10.5); CREATININE 1.02 mg/dL (0.60-1.30); MAGNESIUM 2.3 mg/dL (1.80-2.40); PHOSPHORUS 3.6 mg/dL (2.5-4.9); POTASSIUM 3.9 mmol/L (3.5-5.1); TOTAL PROTEIN, SERUM 5.3 g/dL (6.4-8.2)
[2020-10-14 07:01] LABS: GLUCOMETER DEV NAME(LOC) AHU.; GLUCOSE,POINT OF CARE 240 MG/DL (70-110)
[2020-10-14] MEDS: ASPIRIN 81 MG CHEWABLE TABLET PO SCH (08:38)
[2020-10-14] MEDS: ASCORBIC ACID 500 MG TABLET PO SCH (08:38)
[2020-10-14] MEDS: FAMOTIDINE 20 MG TABLET PO SCH (08:39)
[2020-10-14] MEDS: APIXABAN 5 MG TABLET GT SCH ×2 (08:41→21:00)
[2020-10-14] MEDS: CHOLECALCIFEROL (VIT D3) 1,000 UNITS [25 MCG] TABLET PO SCH (08:41)
[2020-10-14] MEDS: PANTOPRAZOLE SODIUM 40 MG/VIAL IVP SCH (08:43)
[2020-10-14] MEDS: FUROSEMIDE 20 MG/2 ML VIAL IVP SCH (08:44)
[2020-10-14] MEDS: DEXAMETHASONE SOD PHOS 4 MG/ML VIAL IVP SCH (08:45)
[2020-10-14] MEDS: LABETALOL HCL 5 MG/ML 20 ML VIAL IVP SCH ×3 (08:47→21:00)
[2020-10-14] MEDS: CHLORHEXIDINE GLUCONATE 0.12% 15 ML UDCUP ORAL RINSE MM SCH ×2 (09:00→21:00)
[2020-10-14] MEDS: DILTIAZEM HCL 125 MG in DEXTROSE 5%-WATER 100 ML IV SCH (12:24)
[2020-10-14 13:57] LABS: GLUCOMETER DEV NAME(LOC) AHU.; GLUCOSE,POINT OF CARE 198 MG/DL (70-110)
[2020-10-14 18:11] LABS: GLUCOMETER DEV NAME(LOC) AHU.; GLUCOSE,POINT OF CARE 225 MG/DL (70-110)
[2020-10-14] MEDS: ATORVASTATIN CALCIUM 10 MG TABLET PO SCH (21:00)
[2020-10-14] MEDS: ZINC SULFATE 220 MG CAPSULE PO SCH (21:00)
[2020-10-15] VITALS (14 sets, daily range): BP systolic 102–165; BP diastolic 46–80
[2020-10-15 00:03] LABS: GLUCOMETER DEV NAME(LOC) AHU.; GLUCOSE,POINT OF CARE 194 MG/DL (70-110)
[2020-10-15] MEDS: PROPOFOL 1000 MG/ISO-OSM 100 ML IV PRN ×4 (00:21→22:21)
[2020-10-15] MEDS: INSULIN LISPRO 100 UNITS/ML SQ PRN ×3 (00:32→15:53)
[2020-10-15] MEDS: FentaNYL CITRATE PF 500 MCG in DEXTROSE 5%-WATER 90 ML IV PRN ×2 (01:18→15:21)
[2020-10-15] MEDS: LEVOTHYROXINE SODIUM 75 MCG TABLET PO SCH (06:11)
[2020-10-15 06:12] LABS: GLUCOMETER DEV NAME(LOC) AHU.; GLUCOSE,POINT OF CARE 199 MG/DL (70-110)
[2020-10-15] MEDS: INSULIN GLARGINE,HUM.REC.ANLOG 100 UNITS/ML SQ SCH ×2 (06:17→20:33)
[2020-10-15 06:45] LABS: BASOPHILS % (AUTO) 0.1 % (0.0-2.0); EOSINOPHILS % (AUTO) 0 % (1.0-6.0); HEMATOCRIT 28.8 % (36-46); HEMOGLOBIN 9.4 g/dL (12.0-16.0); LYMPHOCYTES # (AUTO) 0.4 K/uL (1.0-4.8); LYMPHOCYTES % (AUTO) 3.2 % (22.0-44.0); MEAN CORPUSCULAR HEMOGLOBIN 29.4 pg (26.0-34.0); MEAN CORPUSCULAR HGB CONC 32.6 G/dL (31.0-37.0); MEAN CORPUSCULAR VOLUME 90 fL (80-100); MONOCYTES % (AUTO) 6.9 % (2.0-9.0); NEUTROPHILS # (AUTO) 12.5 K/uL (1.8-7.7); PLATELET COUNT (AUTO) 162 K/uL (150-450); RED CELL DISTRIBUTION WIDTH 14.7 % (11.5-14.5)
[2020-10-15] MEDS: CISATRACURIUM BESYLATE 50 MG in DEXTROSE 5%-WATER 245 ML IV PRN ×2 (06:51→13:48)
[2020-10-15 07:05] LABS: NEUTROPHILS % (AUTO) 89.8 % (40.0-70.0)
[2020-10-15] MEDS: LABETALOL HCL 5 MG/ML 20 ML VIAL IVP SCH ×3 (09:00→21:00)
[2020-10-15 09:41] LABS: ABG A-A DIFF O2 310.3 mmHg (10-20.0); ABG BASE EXCESS 2.6 mmol/L (-2.0-3.0); ABG CARBOXYHEMOGLOBIN 0.5 % (0.0-1.5); ABG HCO3 26.6 mmol/L (22.0-26.0); ABG METHEMOGLOBIN 0.3 % (0.0-1.5); ABG OXYGEN CONTENT 14.2 mL/dL (15.0-23.0); ABG OXYGEN SATURATION 95.3 % (95.0-98.0); ABG OXYHEMOGLOBIN 94.5 % (94.0-100.0); ABG PCO2 39 mmHg (35-45); ABG PH 7.448 (7.35-7.450); ABG TOTAL HEMOGLOBIN 10.6 G/dL (12.0-18.0); SOURCE, BLOOD GAS ARTERIAL; TEMPERATURE, FAHRENHEIT, BG 97.7 FAHREN (96.0-98.6)
[2020-10-15 09:42] LABS: O2 DEVICE,BLOOD GAS VENTILATOR (ROOM AIR); PEEP,BG 10 cm H2O; SITE, BLOOD GAS ARTERIAL LINE; VT, ABG 400 ml
[2020-10-15] MEDS: CHOLECALCIFEROL (VIT D3) 1,000 UNITS [25 MCG] TABLET PO SCH (09:52)
[2020-10-15] MEDS: FAMOTIDINE 20 MG TABLET PO SCH (09:52)
[2020-10-15] MEDS: ASPIRIN 81 MG CHEWABLE TABLET PO SCH (09:53)
[2020-10-15] MEDS: DEXAMETHASONE SOD PHOS 4 MG/ML VIAL IVP SCH (09:55)
[2020-10-15] MEDS: FUROSEMIDE 20 MG/2 ML VIAL IVP SCH (09:55)
[2020-10-15] MEDS: PANTOPRAZOLE SODIUM 40 MG/VIAL IVP SCH (09:55)
[2020-10-15] MEDS: CHLORHEXIDINE GLUCONATE 0.12% 15 ML UDCUP ORAL RINSE MM SCH ×2 (09:56→21:46)
[2020-10-15] MEDS: APIXABAN 5 MG TABLET GT SCH ×2 (09:59→21:46)
[2020-10-15] MEDS: ASCORBIC ACID 500 MG TABLET PO SCH (10:07)
[2020-10-15] MEDS: DILTIAZEM HCL 125 MG in DEXTROSE 5%-WATER 100 ML IV SCH (13:15)
[2020-10-15 14:45] LABS: BASOPHILS % (AUTO) 0.1 % (0.0-2.0); EOSINOPHILS % (AUTO) 0 % (1.0-6.0); HEMATOCRIT 28.3 % (36-46); HEMOGLOBIN 9.3 g/dL (12.0-16.0); LYMPHOCYTES # (AUTO) 0.3 K/uL (1.0-4.8); LYMPHOCYTES % (AUTO) 2.6 % (22.0-44.0); MEAN CORPUSCULAR HEMOGLOBIN 29.1 pg (26.0-34.0); MEAN CORPUSCULAR HGB CONC 32.8 G/dL (31.0-37.0); MEAN CORPUSCULAR VOLUME 89 fL (80-100); MONOCYTES # (AUTO) 0.5 K/uL (0.1-1.0); MONOCYTES % (AUTO) 5.1 % (2.0-9.0); NEUTROPHILS # (AUTO) 8.9 K/uL (1.8-7.7); PLATELET COUNT (AUTO) 122 K/uL (150-450); RED BLOOD CELL COUNT(AUTO) 3.19 MIL/uL (4.00-5.20); RED CELL DISTRIBUTION WIDTH 14.7 % (11.5-14.5)
[2020-10-15 14:59] LABS: NEUTROPHILS % (AUTO) 92.2 % (40.0-70.0)
[2020-10-15 15:12] LABS: ALBUMIN 1.6 g/dL (3.4-5.0); BILIRUBIN,TOTAL 0.6 mg/dL (0.1-1.0); C-REACTIVE PROTEIN QUANT 2.15 mg/dL (0.00-0.30); CALCIUM, TOTAL 7.9 mg/dL (8.8-10.5); CREATININE 1.36 mg/dL (0.60-1.30); POTASSIUM 4.6 mmol/L (3.5-5.1); TOTAL PROTEIN, SERUM 5.4 g/dL (6.4-8.2)
[2020-10-15 15:55] LABS: GLUCOMETER DEV NAME(LOC) AHU.; GLUCOSE,POINT OF CARE 272 MG/DL (70-110)
[2020-10-15 20:35] LABS: GLUCOMETER DEV NAME(LOC) AHU.; GLUCOSE,POINT OF CARE 293 MG/DL (70-110)
[2020-10-15] MEDS: ZINC SULFATE 220 MG CAPSULE PO SCH (21:47)
[2020-10-15] MEDS: ATORVASTATIN CALCIUM 10 MG TABLET PO SCH (21:47)
[2020-10-16] VITALS: BP 119/54
[2020-10-16] MEDS: INSULIN LISPRO 100 UNITS/ML SQ PRN ×4 (00:22→21:28)
[2020-10-16] MEDS: FentaNYL CITRATE PF 500 MCG in DEXTROSE 5%-WATER 90 ML IV PRN ×3 (03:00→17:10)
[2020-10-16] MEDS: PROPOFOL 1000 MG/ISO-OSM 100 ML IV PRN ×5 (03:00→23:18)
[2020-10-16 04:00] VITALS: BP 112/50
[2020-10-16 05:19] LABS: GLUCOMETER DEV NAME(LOC) AHU.; GLUCOSE,POINT OF CARE 225 MG/DL (70-110)
[2020-10-16] MEDS: LEVOTHYROXINE SODIUM 75 MCG TABLET PO SCH (05:59)
[2020-10-16 07:16] LABS: CALCIUM, TOTAL 7.8 mg/dL (8.8-10.5); CREATININE 1.58 mg/dL (0.60-1.30); POTASSIUM 4.4 mmol/L (3.5-5.1)
[2020-10-16 08:00] VITALS: BP 126/57
[2020-10-16] MEDS: LABETALOL HCL 5 MG/ML 20 ML VIAL IVP SCH ×4 (09:00→21:00)
[2020-10-16 09:14] LABS: CALCIUM, TOTAL 8.1 mg/dL (8.8-10.5); CREATININE 1.47 mg/dL (0.60-1.30); D-DIMER 2.07 mg/L FEU (0.00-0.50); INR 1.1 (0.9-1.1); POTASSIUM 4.6 mmol/L (3.5-5.1); PROTHROMBIN TIME 11.3 SEC (9.4-11.6)
[2020-10-16] MEDS: INSULIN GLARGINE,HUM.REC.ANLOG 100 UNITS/ML SQ SCH ×2 (09:30→21:26)
[2020-10-16] MEDS: APIXABAN 5 MG TABLET GT SCH ×2 (09:31→21:26)
[2020-10-16] MEDS: DEXAMETHASONE SOD PHOS 4 MG/ML VIAL IVP SCH (09:33)
[2020-10-16 09:34] LABS: ALBUMIN 1.7 g/dL (3.4-5.0); BILIRUBIN,TOTAL 0.6 mg/dL (0.1-1.0); C-REACTIVE PROTEIN QUANT 1.53 mg/dL (0.00-0.30); MAGNESIUM 2.5 mg/dL (1.80-2.40); TOTAL PROTEIN, SERUM 5.7 g/dL (6.4-8.2)
[2020-10-16] MEDS: FUROSEMIDE 20 MG/2 ML VIAL IVP SCH (09:34)
[2020-10-16] MEDS: PANTOPRAZOLE SODIUM 40 MG/VIAL IVP SCH (09:37)
[2020-10-16] MEDS: ASPIRIN 81 MG CHEWABLE TABLET PO SCH (09:42)
[2020-10-16] MEDS: ASCORBIC ACID 500 MG TABLET PO SCH (09:44)
[2020-10-16] MEDS: FAMOTIDINE 20 MG TABLET PO SCH (09:44)
[2020-10-16] MEDS: CHLORHEXIDINE GLUCONATE 0.12% 15 ML UDCUP ORAL RINSE MM SCH ×2 (09:45→21:27)
[2020-10-16] MEDS: CHOLECALCIFEROL (VIT D3) 1,000 UNITS [25 MCG] TABLET PO SCH (09:45)
[2020-10-16 12:00] VITALS: BP 135/59
[2020-10-16 12:59] LABS: GLUCOMETER DEV NAME(LOC) AHU.; GLUCOSE,POINT OF CARE 159 MG/DL (70-110)
[2020-10-16] MEDS: DILTIAZEM HCL 125 MG in DEXTROSE 5%-WATER 100 ML IV SCH (13:15)
[2020-10-16 15:30] LABS: GLUCOMETER DEV NAME(LOC) AHU.; GLUCOSE,POINT OF CARE 182 MG/DL (70-110)
[2020-10-16 16:00] VITALS: BP 120/56
[2020-10-16 20:00] VITALS: BP 107/52
[2020-10-16 20:31] LABS: GLUCOMETER DEV NAME(LOC) AHU.; GLUCOSE,POINT OF CARE 184 MG/DL (70-110)
[2020-10-16] MEDS: ATORVASTATIN CALCIUM 10 MG TABLET PO SCH (21:27)
[2020-10-16] MEDS: ZINC SULFATE 220 MG CAPSULE PO SCH (21:27)
[2020-10-16 23:01] LABS: GLUCOSE,POINT OF CARE 139 MG/DL (70-110)
[2020-10-17] VITALS: BP 107/53
[2020-10-17] MEDS: FentaNYL CITRATE PF 500 MCG in DEXTROSE 5%-WATER 90 ML IV PRN ×4 (00:48→22:29)
[2020-10-17 01:12] LABS: GLUCOMETER DEV NAME(LOC) AHU.; GLUCOSE,POINT OF CARE 121 MG/DL (70-110)
[2020-10-17] MEDS: PROPOFOL 1000 MG/ISO-OSM 100 ML IV PRN ×5 (03:17→21:11)
[2020-10-17 04:00] VITALS: BP 109/52
[2020-10-17] MEDS: LEVOTHYROXINE SODIUM 75 MCG TABLET PO SCH (06:26)
[2020-10-17 08:00] VITALS: BP 114/47
[2020-10-17] MEDS: INSULIN GLARGINE,HUM.REC.ANLOG 100 UNITS/ML SQ SCH ×2 (08:28→21:13)
[2020-10-17] MEDS: CHOLECALCIFEROL (VIT D3) 1,000 UNITS [25 MCG] TABLET PO SCH (09:00)
[2020-10-17] MEDS: ASPIRIN 81 MG CHEWABLE TABLET PO SCH (09:00)
[2020-10-17] MEDS: LABETALOL HCL 5 MG/ML 20 ML VIAL IVP SCH ×3 (09:00→21:00)
[2020-10-17] MEDS: ASCORBIC ACID 500 MG TABLET PO SCH (09:00)
[2020-10-17] MEDS: FAMOTIDINE 20 MG TABLET PO SCH (09:00)
[2020-10-17] MEDS: NOREPINEPHRINE 4 MG/D5%-WATER 250 ML IV PRN ×2 (09:34→10:10)
[2020-10-17 09:36] LABS: HEMATOCRIT 29.4 % (36-46); HEMOGLOBIN 9.7 g/dL (12.0-16.0); MEAN CORPUSCULAR HGB CONC 32.9 G/dL (31.0-37.0); MEAN CORPUSCULAR VOLUME 88 fL (80-100); PLATELET COUNT (AUTO) 123 K/uL (150-450); RED BLOOD CELL COUNT(AUTO) 3.34 MIL/uL (4.00-5.20); RED CELL DISTRIBUTION WIDTH 14.4 % (11.5-14.5)
[2020-10-17 09:43] LABS: CALCIUM, TOTAL 7.6 mg/dL (8.8-10.5); CREATININE 2.15 mg/dL (0.60-1.30)
[2020-10-17] MEDS: APIXABAN 5 MG TABLET GT SCH ×2 (10:01→21:10)
[2020-10-17 10:08] LABS: BAND NEUTROPHILS % (MANUAL) 10 % (0-5); LYMPHOCYTES % (MANUAL) 11 % (22-44); MONOCYTES % (MANUAL) 1 % (2-9); SEGMENTED NEUTROPHILS % 78 % (40-70)
[2020-10-17] MEDS: DEXAMETHASONE SOD PHOS 4 MG/ML VIAL IVP SCH (10:08)
[2020-10-17] MEDS: FUROSEMIDE 20 MG/2 ML VIAL IVP SCH (10:17)
[2020-10-17] MEDS: PANTOPRAZOLE SODIUM 40 MG/VIAL IVP SCH (10:18)
[2020-10-17] MEDS: CHLORHEXIDINE GLUCONATE 0.12% 15 ML UDCUP ORAL RINSE MM SCH ×2 (10:20→21:10)
[2020-10-17 11:18] LABS: ABG A-A DIFF O2 334.4 mmHg (10-20.0); ABG BASE EXCESS -0.6 mmol/L (-2.0-3.0); ABG CARBOXYHEMOGLOBIN 0.5 % (0.0-1.5); ABG METHEMOGLOBIN 0.3 % (0.0-1.5); ABG OXYGEN CONTENT 13.9 mL/dL (15.0-23.0); ABG OXYGEN SATURATION 88.8 % (95.0-98.0); ABG OXYHEMOGLOBIN 88.1 % (94.0-100.0); ABG PCO2 38 mmHg (35-45); ABG TOTAL HEMOGLOBIN 11.2 G/dL (12.0-18.0); O2 DEVICE,BLOOD GAS VENTILATOR (ROOM AIR); PEEP,BG 10 cm H2O; PO2, ARTERIAL BG 51.9 mmHg (75.0-83.0); SITE, BLOOD GAS ARTERIAL LINE; SOURCE, BLOOD GAS ARTERIAL; TEMPERATURE, FAHRENHEIT, BG 98.6 FAHREN (96.0-98.6); VT, ABG 400 ml
[2020-10-17 11:19] LABS: SPONTANEOUS VT, BG 511 ml
[2020-10-17] MEDS ORDERED: VASOPRESSIN 40 UNITS in DEXTROSE 5%-WATER 98 ML IV PRN (11:30)
[2020-10-17] MEDS: PHENYLEPHRINE 200 MG/D5%-WATER 250 ML IV PRN (11:44)
[2020-10-17 12:00] VITALS: BP 134/57
[2020-10-17 12:40] LABS: GLUCOMETER DEV NAME(LOC) AHU.; GLUCOSE,POINT OF CARE 98 MG/DL (70-110)
[2020-10-17 12:40] LABS: GLUCOMETER DEV NAME(LOC) AHU.; GLUCOSE,POINT OF CARE 89 MG/DL (70-110)
[2020-10-17] MEDS: DILTIAZEM HCL 125 MG in DEXTROSE 5%-WATER 100 ML IV SCH (13:15)
[2020-10-17] MEDS ORDERED: HEPARIN SODIUM,PORCINE 5,000 UNITS/ML VIAL ONE (14:55)
[2020-10-17] MEDS ORDERED: HEPARIN SODIUM,PORCINE 1,000 UNITS/ML VIAL IVP ONE ×2 (15:00)
[2020-10-17] MEDS ORDERED: *CLINICAL-CEFEPIME DOSING CLINICAL ONE (15:15)
[2020-10-17 16:00] VITALS: BP 141/57
[2020-10-17] MEDS ORDERED: CEFEPIME HCL 1 GM in DEXTROSE 5%-WATER 50 ML IV SCH (16:00)
[2020-10-17] MEDS: DAPTOMYCIN 500 MG in SODIUM CHLORIDE 0.9% 50 ML IV SCH (16:21)
[2020-10-17 17:11] LABS: CALCIUM, TOTAL 7.3 mg/dL (8.8-10.5); CREATININE 2.16 mg/dL (0.60-1.30); MAGNESIUM 2.5 mg/dL (1.80-2.40); PHOSPHORUS 6.5 mg/dL (2.5-4.9); POTASSIUM 4.7 mmol/L (3.5-5.1)
[2020-10-17 18:40] LABS: GLUCOMETER DEV NAME(LOC) AHU.; GLUCOSE,POINT OF CARE 87 MG/DL (70-110)
[2020-10-17 20:00] VITALS: BP 108/49
[2020-10-17] MEDS: ATORVASTATIN CALCIUM 10 MG TABLET PO SCH (21:10)
[2020-10-17] MEDS: ZINC SULFATE 220 MG CAPSULE PO SCH (21:10)
[2020-10-17 22:05] LABS: GLUCOMETER DEV NAME(LOC) AHU.; GLUCOSE,POINT OF CARE 148 MG/DL (70-110)
[2020-10-18] VITALS: BP 114/52
[2020-10-18] MEDS: PROPOFOL 1000 MG/ISO-OSM 100 ML IV PRN ×7 (00:03→20:18)
[2020-10-18] MEDS: INSULIN LISPRO 100 UNITS/ML SQ PRN ×2 (00:44→06:16)
[2020-10-18 01:29] LABS: GLUCOMETER DEV NAME(LOC) AHU.; GLUCOSE,POINT OF CARE 158 MG/DL (70-110)
[2020-10-18] MEDS: FentaNYL CITRATE PF 500 MCG in DEXTROSE 5%-WATER 90 ML IV PRN ×6 (03:01→22:50)
[2020-10-18 04:00] VITALS: BP 110/48
[2020-10-18] MEDS: LEVOTHYROXINE SODIUM 75 MCG TABLET PO SCH (06:51)
[2020-10-18 06:54] LABS: GLUCOMETER DEV NAME(LOC) AHU.; GLUCOSE,POINT OF CARE 136 MG/DL (70-110)
[2020-10-18] MEDS: INSULIN GLARGINE,HUM.REC.ANLOG 100 UNITS/ML SQ SCH ×2 (07:06→21:01)
[2020-10-18 07:29] LABS: CALCIUM, TOTAL 7.8 mg/dL (8.8-10.5); CREATININE 2.68 mg/dL (0.60-1.30); POTASSIUM 4.8 mmol/L (3.5-5.1)
[2020-10-18 07:47] LABS: GLUCOMETER DEV NAME(LOC) AHU.; GLUCOSE,POINT OF CARE 190 MG/DL (70-110)
[2020-10-18 08:00] VITALS: BP 95/41
[2020-10-18] MEDS: LABETALOL HCL 5 MG/ML 20 ML VIAL IVP SCH ×3 (09:00→20:19)
[2020-10-18] MEDS: APIXABAN 5 MG TABLET GT SCH ×2 (09:17→20:17)
[2020-10-18] MEDS: FAMOTIDINE 20 MG TABLET PO SCH (09:17)
[2020-10-18] MEDS: CHLORHEXIDINE GLUCONATE 0.12% 15 ML UDCUP ORAL RINSE MM SCH ×2 (09:17→20:18)
[2020-10-18] MEDS: CHOLECALCIFEROL (VIT D3) 1,000 UNITS [25 MCG] TABLET PO SCH (09:17)
[2020-10-18] MEDS: ASCORBIC ACID 500 MG TABLET PO SCH (09:18)
[2020-10-18] MEDS: FUROSEMIDE 20 MG/2 ML VIAL IVP SCH (09:18)
[2020-10-18] MEDS: DEXAMETHASONE SOD PHOS 4 MG/ML VIAL IVP SCH (09:18)
[2020-10-18] MEDS: PANTOPRAZOLE SODIUM 40 MG/VIAL IVP SCH (09:21)
[2020-10-18] MEDS: ASPIRIN 81 MG CHEWABLE TABLET PO SCH (09:21)
[2020-10-18 12:00] VITALS: BP 111/46
[2020-10-18] MEDS: DILTIAZEM HCL 125 MG in DEXTROSE 5%-WATER 100 ML IV SCH (13:15)
[2020-10-18] MEDS: CEFEPIME HCL 2 GM in DEXTROSE 5%-WATER 50 ML IV SCH (15:29)
[2020-10-18 16:00] VITALS: BP 127/53
[2020-10-18] MEDS ORDERED: HEPARIN SODIUM,PORCINE 1,000 UNITS/ML VIAL ONE (16:01)
[2020-10-18 16:02] LABS: GLUCOMETER DEV NAME(LOC) AHU.; GLUCOSE,POINT OF CARE 114 MG/DL (70-110)
[2020-10-18 16:30] LABS: APPEARANCE,URINE TURBID (CLEAR); BILIRUBIN,URINE NEGATIVE (NEGATIVE); GLUCOSE, URINE (UA) NEGATIVE (NEGATIVE); KETONES,URINE NEGATIVE (NEGATIVE); LEUKOCYTE ESTERASE ,URINE SMALL (NEGATIVE); NITRATE,URINE NEGATIVE (NEGATIVE); OCCULT BLOOD,URINE LARGE (NEGATIVE); PROTEIN,URINE POS 1+ (NEGATIVE); UROBILINOGEN,URINE 0.2 mg/dL (<=1.0)
[2020-10-18 16:41] LABS: BACTERIA,URINE Few /HPF (None Seen); RBC,URINE 0-2 /HPF (0-2); WBC,URINE 0-2 /HPF (0-5); YEAST,URINE Many /HPF (None Seen)
[2020-10-18 16:42] LABS: SQUAMOUS EPITHELIAL CELL,UR Rare /LPF (None Seen)
[2020-10-18 19:22] LABS: GLUCOMETER DEV NAME(LOC) AHU.; GLUCOSE,POINT OF CARE 131 MG/DL (70-110)
[2020-10-18] MEDS: ZINC SULFATE 220 MG CAPSULE PO SCH (20:17)
[2020-10-18] MEDS: ATORVASTATIN CALCIUM 10 MG TABLET PO SCH (20:17)
[2020-10-18 21:06] LABS: GLUCOMETER DEV NAME(LOC) AHU.; GLUCOSE,POINT OF CARE 146 MG/DL (70-110)
[2020-10-18 21:51] VITALS: BP 128/50
[2020-10-19] VITALS (15 sets, daily range): BP systolic 99–138; BP diastolic 42–59
[2020-10-19 00:32] LABS: GLUCOMETER DEV NAME(LOC) AHU.; GLUCOSE,POINT OF CARE 143 MG/DL (70-110)
[2020-10-19] MEDS: PROPOFOL 1000 MG/ISO-OSM 100 ML IV PRN ×3 (02:39→23:02)
[2020-10-19] MEDS: FentaNYL CITRATE PF 500 MCG in DEXTROSE 5%-WATER 90 ML IV PRN ×6 (03:22→23:38)
[2020-10-19 04:40] LABS: BASOPHILS % (AUTO) 0.2 % (0.0-2.0); EOSINOPHILS % (AUTO) 0.2 % (1.0-6.0); HEMATOCRIT 22.7 % (36-46); HEMOGLOBIN 7.4 g/dL (12.0-16.0); LYMPHOCYTES # (AUTO) 0.3 K/uL (1.0-4.8); LYMPHOCYTES % (AUTO) 1.4 % (22.0-44.0); MEAN CORPUSCULAR HEMOGLOBIN 28.9 pg (26.0-34.0); MEAN CORPUSCULAR HGB CONC 32.5 G/dL (31.0-37.0); MEAN CORPUSCULAR VOLUME 89 fL (80-100); MONOCYTES # (AUTO) 0.7 K/uL (0.1-1.0); MONOCYTES % (AUTO) 3.4 % (2.0-9.0); NEUTROPHILS # (AUTO) 18.3 K/uL (1.8-7.7); RED BLOOD CELL COUNT(AUTO) 2.55 MIL/uL (4.00-5.20)
[2020-10-19 04:57] LABS: ALBUMIN 1.4 g/dL (3.4-5.0); BILIRUBIN,TOTAL 0.6 mg/dL (0.1-1.0); C-REACTIVE PROTEIN QUANT 15.45 mg/dL (0.00-0.30); CALCIUM, TOTAL 7.8 mg/dL (8.8-10.5); CREATININE 2.49 mg/dL (0.60-1.30); POTASSIUM 4.9 mmol/L (3.5-5.1); TOTAL PROTEIN, SERUM 5.4 g/dL (6.4-8.2)
[2020-10-19 05:50] LABS: NEUTROPHILS % (AUTO) 94.8 % (40.0-70.0)
[2020-10-19] MEDS: LEVOTHYROXINE SODIUM 75 MCG TABLET PO SCH (06:18)
[2020-10-19] MEDS: INSULIN GLARGINE,HUM.REC.ANLOG 100 UNITS/ML SQ SCH ×2 (07:00→22:43)
[2020-10-19 07:09] LABS: GLUCOMETER DEV NAME(LOC) AHU.; GLUCOSE,POINT OF CARE 85 MG/DL (70-110)
[2020-10-19 07:43] LABS: PLATELET COUNT (AUTO) 80 K/uL (150-450)
[2020-10-19] MEDS: CHLORHEXIDINE GLUCONATE 0.12% 15 ML UDCUP ORAL RINSE MM SCH (09:00)
[2020-10-19] MEDS: LABETALOL HCL 5 MG/ML 20 ML VIAL IVP SCH ×3 (09:00→21:00)
[2020-10-19] MEDS: FAMOTIDINE 20 MG TABLET PO SCH (09:33)
[2020-10-19] MEDS: ASCORBIC ACID 500 MG TABLET PO SCH (09:33)
[2020-10-19] MEDS: PANTOPRAZOLE SODIUM 40 MG/VIAL IVP SCH (09:33)
[2020-10-19] MEDS: CHOLECALCIFEROL (VIT D3) 1,000 UNITS [25 MCG] TABLET PO SCH (09:33)
[2020-10-19] MEDS: DEXAMETHASONE SOD PHOS 4 MG/ML VIAL IVP SCH (09:34)
[2020-10-19] MEDS: ASPIRIN 81 MG CHEWABLE TABLET PO SCH (09:34)
[2020-10-19] MEDS: APIXABAN 5 MG TABLET GT SCH ×2 (09:34→22:43)
[2020-10-19] MEDS: FUROSEMIDE 20 MG/2 ML VIAL IVP SCH (09:38)
[2020-10-19 10:31] LABS: GLUCOMETER DEV NAME(LOC) AHU.; GLUCOSE,POINT OF CARE 70 MG/DL (70-110)
[2020-10-19 11:05] LABS: ABG A-A DIFF O2 357.1 mmHg (10-20.0); ABG CARBOXYHEMOGLOBIN 0.3 % (0.0-1.5); ABG HCO3 19.5 mmol/L (22.0-26.0); ABG METHEMOGLOBIN 0.3 % (0.0-1.5); ABG OXYGEN CONTENT 11.7 mL/dL (15.0-23.0); ABG OXYGEN SATURATION 96.6 % (95.0-98.0); ABG PCO2 53 mmHg (35-45); ABG PH 7.227 (7.35-7.450); ABG TOTAL HEMOGLOBIN 8.5 G/dL (12.0-18.0); PO2, ARTERIAL BG 88.9 mmHg (75.0-83.0); SOURCE, BLOOD GAS ARTERIAL; TEMPERATURE, FAHRENHEIT, BG 94.8 FAHREN (96.0-98.6)
[2020-10-19 11:06] LABS: SITE, BLOOD GAS LFT RADIAL
[2020-10-19 11:07] LABS: O2 DEVICE,BLOOD GAS VENTILATOR (ROOM AIR); PEEP,BG 12 cm H2O; VENT MODE, BG Press. Control Vent (ROOM AIR); VT, ABG 420 ml
[2020-10-19] MEDS: DILTIAZEM HCL 125 MG in DEXTROSE 5%-WATER 100 ML IV SCH (13:15)
[2020-10-19] MEDS: DAPTOMYCIN 500 MG in SODIUM CHLORIDE 0.9% 50 ML IV SCH (16:40)
[2020-10-19] MEDS: CEFEPIME HCL 2 GM in DEXTROSE 5%-WATER 50 ML IV SCH (16:42)
[2020-10-19 18:38] LABS: GLUCOMETER DEV NAME(LOC) AHU.; GLUCOSE,POINT OF CARE 88 MG/DL (70-110)
[2020-10-19 18:41] LABS: GLUCOMETER DEV NAME(LOC) AHU.; GLUCOSE,POINT OF CARE 123 MG/DL (70-110)
[2020-10-19] MEDS: ATORVASTATIN CALCIUM 10 MG TABLET PO SCH (22:43)
[2020-10-19] MEDS: ZINC SULFATE 220 MG CAPSULE PO SCH (22:44)
[2020-10-19 22:57] LABS: GLUCOSE,POINT OF CARE 99 MG/DL (70-110)
[2020-10-20] VITALS (15 sets, daily range): BP systolic 112–146; BP diastolic 50–57
[2020-10-20] MEDS: CHLORHEXIDINE GLUCONATE 0.12% 15 ML UDCUP ORAL RINSE MM SCH ×3 (00:42→20:50)
[2020-10-20] MEDS: PROPOFOL 1000 MG/ISO-OSM 100 ML IV PRN ×4 (02:06→21:50)
[2020-10-20] MEDS: FentaNYL CITRATE PF 500 MCG in DEXTROSE 5%-WATER 90 ML IV PRN ×3 (03:20→22:42)
[2020-10-20 05:20] LABS: ALBUMIN 1.2 g/dL (3.4-5.0); BILIRUBIN,TOTAL 0.6 mg/dL (0.1-1.0); C-REACTIVE PROTEIN QUANT 19.68 mg/dL (0.00-0.30); CALCIUM, TOTAL 7.9 mg/dL (8.8-10.5); CREATININE 2.6 mg/dL (0.60-1.30); POTASSIUM 5.3 mmol/L (3.5-5.1); TOTAL PROTEIN, SERUM 5.4 g/dL (6.4-8.2)
[2020-10-20 05:34] LABS: BASOPHILS % (AUTO) 0.1 % (0.0-2.0); EOSINOPHILS % (AUTO) 0 % (1.0-6.0); HEMATOCRIT 23.5 % (36-46); HEMOGLOBIN 7.6 g/dL (12.0-16.0); LYMPHOCYTES # (AUTO) 0.3 K/uL (1.0-4.8); LYMPHOCYTES % (AUTO) 1.2 % (22.0-44.0); MEAN CORPUSCULAR HEMOGLOBIN 28.6 pg (26.0-34.0); MEAN CORPUSCULAR HGB CONC 32.3 G/dL (31.0-37.0); MEAN CORPUSCULAR VOLUME 89 fL (80-100); MONOCYTES # (AUTO) 0.9 K/uL (0.1-1.0); MONOCYTES % (AUTO) 3.9 % (2.0-9.0); NEUTROPHILS # (AUTO) 21.7 K/uL (1.8-7.7); PLATELET COUNT (AUTO) 115 K/uL (150-450); RED BLOOD CELL COUNT(AUTO) 2.65 MIL/uL (4.00-5.20); RED CELL DISTRIBUTION WIDTH 14.9 % (11.5-14.5)
[2020-10-20 05:44] LABS: NEUTROPHILS % (AUTO) 94.8 % (40.0-70.0)
[2020-10-20 07:53] LABS: GLUCOMETER DEV NAME(LOC) AHU.; GLUCOSE,POINT OF CARE 86 MG/DL (70-110)
[2020-10-20] MEDS: LABETALOL HCL 5 MG/ML 20 ML VIAL IVP SCH ×3 (09:00→20:49)
[2020-10-20] MEDS: ASPIRIN 81 MG CHEWABLE TABLET PO SCH (11:07)
[2020-10-20] MEDS: APIXABAN 5 MG TABLET GT SCH ×2 (11:07→20:50)
[2020-10-20] MEDS: LEVOTHYROXINE SODIUM 75 MCG TABLET PO SCH (11:08)
[2020-10-20] MEDS: PANTOPRAZOLE SODIUM 40 MG/VIAL IVP SCH (11:09)
[2020-10-20] MEDS: FUROSEMIDE 20 MG/2 ML VIAL IVP SCH (11:09)
[2020-10-20] MEDS: DEXAMETHASONE SOD PHOS 4 MG/ML VIAL IVP SCH (11:09)
[2020-10-20] MEDS: ASCORBIC ACID 500 MG TABLET PO SCH (11:09)
[2020-10-20] MEDS: CHOLECALCIFEROL (VIT D3) 1,000 UNITS [25 MCG] TABLET PO SCH (11:10)
[2020-10-20] MEDS ORDERED: EPOETIN ALFA 10,000 UNITS/ML VIAL SQ ONE (11:30)
[2020-10-20 12:04] LABS: GLUCOMETER DEV NAME(LOC) AHU.; GLUCOSE,POINT OF CARE 103 MG/DL (70-110)
[2020-10-20] MEDS: DILTIAZEM HCL 125 MG in DEXTROSE 5%-WATER 100 ML IV SCH (13:15)
[2020-10-20 16:57] LABS: HEMATOCRIT 20.4 % (36-46)
[2020-10-20 16:58] LABS: HEMOGLOBIN 6.6 g/dL (12.0-16.0)
[2020-10-20] MEDS ORDERED: HEPARIN SODIUM,PORCINE 1,000 UNITS/ML VIAL ONE (18:00)
[2020-10-20 18:13] LABS: GLUCOMETER DEV NAME(LOC) AHU.; GLUCOSE,POINT OF CARE 95 MG/DL (70-110)
[2020-10-20] MEDS: CEFEPIME HCL 2 GM in DEXTROSE 5%-WATER 50 ML IV SCH (19:39)
[2020-10-20] MEDS: ATORVASTATIN CALCIUM 10 MG TABLET PO SCH (20:50)
[2020-10-20] MEDS: ZINC SULFATE 220 MG CAPSULE PO SCH (20:50)
[2020-10-20] MEDS: INSULIN LISPRO 100 UNITS/ML SQ PRN (22:40)
[2020-10-20 22:44] LABS: GLUCOMETER DEV NAME(LOC) AHU.; GLUCOSE,POINT OF CARE 121 MG/DL (70-110)
[2020-10-21] VITALS (23 sets, daily range): BP systolic 102–171; BP diastolic 31–81
[2020-10-21] MEDS: PROPOFOL 1000 MG/ISO-OSM 100 ML IV PRN ×7 (01:09→21:33)
[2020-10-21] MEDS: FentaNYL CITRATE PF 500 MCG in DEXTROSE 5%-WATER 90 ML IV PRN ×5 (02:51→21:57)
[2020-10-21 05:27] LABS: BASOPHILS % (AUTO) 0.1 % (0.0-2.0); EOSINOPHILS % (AUTO) 0 % (1.0-6.0); HEMATOCRIT 25.7 % (36-46); HEMOGLOBIN 8.4 g/dL (12.0-16.0); LYMPHOCYTES # (AUTO) 0.2 K/uL (1.0-4.8); LYMPHOCYTES % (AUTO) 1.3 % (22.0-44.0); MEAN CORPUSCULAR HGB CONC 32.8 G/dL (31.0-37.0); MEAN CORPUSCULAR VOLUME 88 fL (80-100); MONOCYTES # (AUTO) 0.8 K/uL (0.1-1.0); MONOCYTES % (AUTO) 4.4 % (2.0-9.0); NEUTROPHILS # (AUTO) 17.6 K/uL (1.8-7.7); PLATELET COUNT (AUTO) 118 K/uL (150-450); RED BLOOD CELL COUNT(AUTO) 2.91 MIL/uL (4.00-5.20); RED CELL DISTRIBUTION WIDTH 15.3 % (11.5-14.5)
[2020-10-21 05:32] LABS: NEUTROPHILS % (AUTO) 94.2 % (40.0-70.0)
[2020-10-21 05:56] LABS: CALCIUM, TOTAL 7.8 mg/dL (8.8-10.5); CREATININE 1.68 mg/dL (0.60-1.30); POTASSIUM 4.3 mmol/L (3.5-5.1)
[2020-10-21 05:58] LABS: GLUCOMETER DEV NAME(LOC) AHU.; GLUCOSE,POINT OF CARE 100 MG/DL (70-110)
[2020-10-21 06:02] LABS: ALBUMIN 1.3 g/dL (3.4-5.0); BILIRUBIN,TOTAL 0.9 mg/dL (0.1-1.0); TOTAL PROTEIN, SERUM 5.8 g/dL (6.4-8.2)
[2020-10-21] MEDS: LEVOTHYROXINE SODIUM 75 MCG TABLET PO SCH (06:30)
[2020-10-21] MEDS: DEXAMETHASONE SOD PHOS 4 MG/ML VIAL IVP SCH (08:07)
[2020-10-21] MEDS: APIXABAN 5 MG TABLET GT SCH ×2 (08:07→23:42)
[2020-10-21] MEDS: ASPIRIN 81 MG CHEWABLE TABLET PO SCH (08:07)
[2020-10-21] MEDS: PANTOPRAZOLE SODIUM 40 MG/VIAL IVP SCH (08:07)
[2020-10-21] MEDS: CHOLECALCIFEROL (VIT D3) 1,000 UNITS [25 MCG] TABLET PO SCH (08:07)
[2020-10-21] MEDS: ASCORBIC ACID 500 MG TABLET PO SCH (08:07)
[2020-10-21] MEDS: LABETALOL HCL 5 MG/ML 20 ML VIAL IVP SCH ×3 (08:08→20:21)
[2020-10-21] MEDS: CHLORHEXIDINE GLUCONATE 0.12% 15 ML UDCUP ORAL RINSE MM SCH ×2 (08:08→20:22)
[2020-10-21] MEDS: FUROSEMIDE 20 MG/2 ML VIAL IVP SCH (08:08)
[2020-10-21] MEDS: CEFEPIME HCL 2 GM in DEXTROSE 5%-WATER 50 ML IV SCH ×2 (09:27→23:42)
[2020-10-21] MEDS: DILTIAZEM HCL 125 MG in DEXTROSE 5%-WATER 100 ML IV SCH (13:15)
[2020-10-21] MEDS: INSULIN LISPRO 100 UNITS/ML SQ PRN ×2 (14:11→21:57)
[2020-10-21] MEDS ORDERED: CISATRACURIUM BESYLATE 2 MG/ML 10 ML VIAL IV ONE (14:30)
[2020-10-21] MEDS: CISATRACURIUM BESYLATE 50 MG in DEXTROSE 5%-WATER 245 ML IV PRN ×3 (14:45→21:18)
[2020-10-21 18:46] LABS: GLUCOMETER DEV NAME(LOC) AHU.; GLUCOSE,POINT OF CARE 161 MG/DL (70-110)
[2020-10-21] MEDS: NOREPINEPHRINE 4 MG/D5%-WATER 250 ML IV PRN (19:33)
[2020-10-21 21:59] LABS: GLUCOMETER DEV NAME(LOC) AHU.; GLUCOSE,POINT OF CARE 155 MG/DL (70-110)
[2020-10-21] MEDS: ATORVASTATIN CALCIUM 10 MG TABLET PO SCH (23:42)
[2020-10-21] MEDS: ZINC SULFATE 220 MG CAPSULE PO SCH (23:42)
[2020-10-22] VITALS (11 sets, daily range): BP systolic 97–139; BP diastolic 31–49
[2020-10-22 00:14] LABS: GLUCOMETER DEV NAME(LOC) AHU.; GLUCOSE,POINT OF CARE 200 MG/DL (70-110)
[2020-10-22] MEDS: FentaNYL CITRATE PF 500 MCG in DEXTROSE 5%-WATER 90 ML IV PRN ×4 (00:51→21:33)
[2020-10-22] MEDS: INSULIN LISPRO 100 UNITS/ML SQ PRN ×5 (00:55→17:38)
[2020-10-22] MEDS: CISATRACURIUM BESYLATE 50 MG in DEXTROSE 5%-WATER 245 ML IV PRN ×4 (00:57→22:56)
[2020-10-22] MEDS ORDERED: METOPROLOL TARTRATE 5 MG/5 ML VIAL IVP ONE (02:30)
[2020-10-22] MEDS: CARVEDILOL 3.125 MG TABLET NG SCH ×3 (02:32→21:00)
[2020-10-22] MEDS: PHENYLEPHRINE 200 MG/D5%-WATER 250 ML IV PRN (02:48)
[2020-10-22] MEDS: PROPOFOL 1000 MG/ISO-OSM 100 ML IV PRN ×5 (03:12→17:22)
[2020-10-22 05:40] LABS: GLUCOMETER DEV NAME(LOC) AHU.; GLUCOSE,POINT OF CARE 190 MG/DL (70-110)
[2020-10-22 05:46] LABS: BASOPHILS % (AUTO) 0.3 % (0.0-2.0); EOSINOPHILS % (AUTO) 0.2 % (1.0-6.0); HEMATOCRIT 27.2 % (36-46); HEMOGLOBIN 8.5 g/dL (12.0-16.0); LYMPHOCYTES # (AUTO) 1.1 K/uL (1.0-4.8); LYMPHOCYTES % (AUTO) 4.4 % (22.0-44.0); MEAN CORPUSCULAR HGB CONC 31.2 G/dL (31.0-37.0); MEAN CORPUSCULAR VOLUME 96 fL (80-100); MONOCYTES # (AUTO) 0.8 K/uL (0.1-1.0); MONOCYTES % (AUTO) 3.3 % (2.0-9.0); NEUTROPHILS # (AUTO) 22.3 K/uL (1.8-7.7); RED BLOOD CELL COUNT(AUTO) 2.83 MIL/uL (4.00-5.20)
[2020-10-22 06:04] LABS: NEUTROPHILS % (AUTO) 91.8 % (40.0-70.0)
[2020-10-22] MEDS: NOREPINEPHRINE 4 MG/D5%-WATER 250 ML IV PRN ×3 (06:12→22:30)
[2020-10-22 06:18] LABS: C-REACTIVE PROTEIN QUANT 18.53 mg/dL (0.00-0.30); CALCIUM, TOTAL 7.8 mg/dL (8.8-10.5); CREATININE 1.8 mg/dL (0.60-1.30); POTASSIUM 5.2 mmol/L (3.5-5.1)
[2020-10-22] MEDS: LEVOTHYROXINE SODIUM 75 MCG TABLET PO SCH (06:40)
[2020-10-22 07:39] LABS: PLATELET COUNT (AUTO) 136 K/uL (150-450)
[2020-10-22] MEDS: CHOLECALCIFEROL (VIT D3) 1,000 UNITS [25 MCG] TABLET PO SCH (09:00)
[2020-10-22] MEDS: LABETALOL HCL 5 MG/ML 20 ML VIAL IVP SCH ×3 (09:00→21:00)
[2020-10-22 09:52] LABS: ABG A-A DIFF O2 552.9 mmHg (10-20.0); ABG BASE EXCESS -10.3 mmol/L (-2.0-3.0); ABG CARBOXYHEMOGLOBIN 1.5 % (0.0-1.5); ABG HCO3 15.4 mmol/L (22.0-26.0); ABG METHEMOGLOBIN 0.3 % (0.0-1.5); ABG OXYGEN CONTENT 10.5 mL/dL (15.0-23.0); ABG OXYHEMOGLOBIN 81.2 % (94.0-100.0); ABG TOTAL HEMOGLOBIN 9.2 G/dL (12.0-18.0); PO2, ARTERIAL BG 47.8 mmHg (75.0-83.0); SOURCE, BLOOD GAS ARTERIAL; TEMPERATURE, FAHRENHEIT, BG 96.4 FAHREN (96.0-98.6)
[2020-10-22] MEDS: ASPIRIN 81 MG CHEWABLE TABLET PO SCH (09:55)
[2020-10-22] MEDS: FUROSEMIDE 20 MG/2 ML VIAL IVP SCH (09:56)
[2020-10-22] MEDS: CHLORHEXIDINE GLUCONATE 0.12% 15 ML UDCUP ORAL RINSE MM SCH ×2 (09:57→21:00)
[2020-10-22] MEDS: DEXAMETHASONE SOD PHOS 4 MG/ML VIAL IVP SCH (09:58)
[2020-10-22] MEDS: APIXABAN 5 MG TABLET GT SCH ×2 (09:58→21:44)
[2020-10-22] MEDS: PANTOPRAZOLE SODIUM 40 MG/VIAL IVP SCH (09:58)
[2020-10-22] MEDS: ASCORBIC ACID 500 MG TABLET PO SCH (10:00)
[2020-10-22 10:02] LABS: ABG PCO2 115 mmHg (35-45); ABG PH 6.904 (7.35-7.450)
[2020-10-22 10:03] LABS: ABG OXYGEN SATURATION 82.7 % (95.0-98.0); O2 DEVICE,BLOOD GAS VENTILATOR (ROOM AIR); PEEP,BG 10 cm H2O; SITE, BLOOD GAS LFT RADIAL; SPONTANEOUS VT, BG 290 ml; VENT MODE, BG Press. Control Vent (ROOM AIR)
[2020-10-22 11:48] LABS: ABG A-A DIFF O2 569.5 mmHg (10-20.0); ABG BASE EXCESS -10.5 mmol/L (-2.0-3.0); ABG CARBOXYHEMOGLOBIN 1.4 % (0.0-1.5); ABG HCO3 15.5 mmol/L (22.0-26.0); ABG METHEMOGLOBIN 0.3 % (0.0-1.5); ABG OXYGEN CONTENT 11.4 mL/dL (15.0-23.0); ABG OXYGEN SATURATION 90.2 % (95.0-98.0); ABG OXYHEMOGLOBIN 88.7 % (94.0-100.0); ABG TOTAL HEMOGLOBIN 9.1 G/dL (12.0-18.0); PO2, ARTERIAL BG 55.6 mmHg (75.0-83.0); SOURCE, BLOOD GAS ARTERIAL
[2020-10-22 12:10] LABS: ABG PCO2 93 mmHg (35-45); ABG PH 6.971 (7.35-7.450); O2 DEVICE,BLOOD GAS VENTILATOR (ROOM AIR); PEEP,BG 10 cm H2O; SITE, BLOOD GAS LFT RADIAL; VT, ABG 320 ml
[2020-10-22 12:23] LABS: GLUCOMETER DEV NAME(LOC) AHU.; GLUCOSE,POINT OF CARE 169 MG/DL (70-110)
[2020-10-22] MEDS: DILTIAZEM HCL 125 MG in DEXTROSE 5%-WATER 100 ML IV SCH (13:15)
[2020-10-22] MEDS: CEFEPIME HCL 2 GM in DEXTROSE 5%-WATER 50 ML IV SCH (13:31)
[2020-10-22 13:45] LABS: GLUCOMETER DEV NAME(LOC) AHU.; GLUCOSE,POINT OF CARE 138 MG/DL (70-110)
[2020-10-22 17:16] LABS: GLUCOMETER DEV NAME(LOC) AHU.; GLUCOSE,POINT OF CARE 148 MG/DL (70-110)
[2020-10-22] MEDS ORDERED: HEPARIN SODIUM,PORCINE 1,000 UNITS/ML VIAL ONE (17:58)
[2020-10-22] MEDS ORDERED: HEPARIN SODIUM,PORCINE 1,000 UNITS/ML VIAL IVP ONE (17:59)
[2020-10-22 19:07] LABS: ABG A-A DIFF O2 554.3 mmHg (10-20.0); ABG BASE EXCESS -11.9 mmol/L (-2.0-3.0); ABG CARBOXYHEMOGLOBIN 1.2 % (0.0-1.5); ABG HCO3 14.9 mmol/L (22.0-26.0); ABG METHEMOGLOBIN 0.3 % (0.0-1.5); ABG OXYGEN CONTENT 11.3 mL/dL (15.0-23.0); ABG OXYGEN SATURATION 93.6 % (95.0-98.0); ABG OXYHEMOGLOBIN 92.2 % (94.0-100.0); ABG TOTAL HEMOGLOBIN 8.6 G/dL (12.0-18.0); PO2, ARTERIAL BG 76.4 mmHg (75.0-83.0); SOURCE, BLOOD GAS ARTERIAL; TEMPERATURE, FAHRENHEIT, BG 98.6 FAHREN (96.0-98.6)
[2020-10-22 19:08] LABS: ABG PCO2 82 mmHg (35-45); ABG PH 6.993 (7.35-7.450); O2 DEVICE,BLOOD GAS VENTILATOR (ROOM AIR); PEEP,BG 10 cm H2O; SITE, BLOOD GAS LFT RADIAL; VT, ABG 320 ml
[2020-10-22] MEDS: DAPTOMYCIN 500 MG in SODIUM CHLORIDE 0.9% 50 ML IV SCH (20:49)
[2020-10-22] MEDS: ATORVASTATIN CALCIUM 10 MG TABLET PO SCH (21:44)
[2020-10-22] MEDS: ZINC SULFATE 220 MG CAPSULE PO SCH (21:44)
[2020-10-23] VITALS: BP 119/47
[2020-10-23] MEDS: FentaNYL CITRATE PF 500 MCG in DEXTROSE 5%-WATER 90 ML IV PRN ×5 (00:22→12:23)
[2020-10-23] MEDS: DAPTOMYCIN 500 MG in SODIUM CHLORIDE 0.9% 50 ML IV SCH (00:23)
[2020-10-23] MEDS: PROPOFOL 1000 MG/ISO-OSM 100 ML IV PRN ×5 (00:24→12:40)
[2020-10-23] MEDS: CEFEPIME HCL 2 GM in DEXTROSE 5%-WATER 50 ML IV SCH ×2 (01:07→09:37)
[2020-10-23 01:29] LABS: GLUCOMETER DEV NAME(LOC) AHU.; GLUCOSE,POINT OF CARE 114 MG/DL (70-110)
[2020-10-23 01:29] LABS: GLUCOMETER DEV NAME(LOC) AHU.; GLUCOSE,POINT OF CARE 115 MG/DL (70-110)
[2020-10-23] MEDS: CISATRACURIUM BESYLATE 50 MG in DEXTROSE 5%-WATER 245 ML IV PRN ×2 (03:37→07:52)
[2020-10-23 04:00] VITALS: BP 110/39
[2020-10-23] MEDS ORDERED: METOPROLOL TARTRATE 5 MG/5 ML VIAL IVP PRN (04:00)
[2020-10-23] MEDS: NOREPINEPHRINE 4 MG/D5%-WATER 250 ML IV PRN (04:25)
[2020-10-23] MEDS: LEVOTHYROXINE SODIUM 75 MCG TABLET PO SCH (06:03)
[2020-10-23 07:02] LABS: GLUCOMETER DEV NAME(LOC) AHU.; GLUCOSE,POINT OF CARE 111 MG/DL (70-110)
[2020-10-23] MEDS: PHENYLEPHRINE 200 MG/D5%-WATER 250 ML IV PRN (07:47)
[2020-10-23] MEDS: LABETALOL HCL 5 MG/ML 20 ML VIAL IVP SCH (09:00)
[2020-10-23] MEDS: CHLORHEXIDINE GLUCONATE 0.12% 15 ML UDCUP ORAL RINSE MM SCH (09:00)
[2020-10-23] MEDS: DEXAMETHASONE SOD PHOS 4 MG/ML VIAL IVP SCH (09:27)
[2020-10-23] MEDS: PANTOPRAZOLE SODIUM 40 MG/VIAL IVP SCH (09:29)
[2020-10-23] MEDS: FUROSEMIDE 20 MG/2 ML VIAL IVP SCH (09:29)
[2020-10-23] MEDS: ASPIRIN 81 MG CHEWABLE TABLET PO SCH (09:30)
[2020-10-23] MEDS: CARVEDILOL 3.125 MG TABLET NG SCH (09:30)
[2020-10-23] MEDS: CHOLECALCIFEROL (VIT D3) 1,000 UNITS [25 MCG] TABLET PO SCH (09:31)
[2020-10-23] MEDS: APIXABAN 5 MG TABLET GT SCH (09:32)
[2020-10-23] MEDS: ASCORBIC ACID 500 MG TABLET PO SCH (09:34)
[2020-10-23 10:47] VITALS: BP 135/37
[2020-10-23 12:13] VITALS: BP 126/37
[2020-10-23] MEDS: DILTIAZEM HCL 125 MG in DEXTROSE 5%-WATER 100 ML IV SCH (13:15)
[2020-10-23 13:51] VITALS: BP 102/29
[2020-10-23 16:41] LABS: GLUCOMETER DEV NAME(LOC) AHU.; GLUCOSE,POINT OF CARE 94 MG/DL (70-110)
[2020-10-23] MEDS ORDERED: CEFEPIME HCL 1 GM in DEXTROSE 5%-WATER 50 ML IV SCH (21:00)
== END 2020-10-23 18:00 | DRG 870 ==
LOC: EMS 20:47 → 5S 10-06 18:57 → AHU 10-07 20:15 → ICUN 10-08 09:08
PROVIDERS: ADMIT Internal Medicine; ATTEND Internal Medicine
PROC: XW033E5 Introduction of Remdesivir Anti-infective into Peripheral Vein, Percutaneous Approach, New Technology Group 5 (ICD-10-PCS; 2020-10-06)
PROC: 5A1955Z Respiratory Ventilation, Greater than 96 Consecutive Hours (ICD-10-PCS; principal; 2020-10-07)
PROC: 0BH17EZ Insertion of Endotracheal Airway into Trachea, Via Natural or Artificial Opening (ICD-10-PCS; 2020-10-07)
PROC: 03HY32Z Insertion of Monitoring Device into Upper Artery, Percutaneous Approach (ICD-10-PCS; 2020-10-07)
PROC: 4A133B1 Monitoring of Arterial Pressure, Peripheral, Percutaneous Approach (ICD-10-PCS; 2020-10-07)
PROC: 4A133J1 Monitoring of Arterial Pulse, Peripheral, Percutaneous Approach (ICD-10-PCS; 2020-10-07)
PROC: XW13325 Transfusion of Convalescent Plasma (Nonautologous) into Peripheral Vein, Percutaneous Approach, New Technology Group 5 (ICD-10-PCS; 2020-10-12)
PROC: 06HY33Z Insertion of Infusion Device into Lower Vein, Percutaneous Approach (ICD-10-PCS; 2020-10-17)
PROC: 5A1D70Z Performance of Urinary Filtration, Intermittent, Less than 6 Hours Per Day (ICD-10-PCS; 2020-10-18)
PROC: 5A1D70Z Performance of Urinary Filtration, Intermittent, Less than 6 Hours Per Day (ICD-10-PCS; 2020-10-20)
PROC: 30233N1 Transfusion of Nonautologous Red Blood Cells into Peripheral Vein, Percutaneous Approach (ICD-10-PCS; 2020-10-21)
PROC: 5A1D70Z Performance of Urinary Filtration, Intermittent, Less than 6 Hours Per Day (ICD-10-PCS; 2020-10-21)
PROC: 5A1D70Z Performance of Urinary Filtration, Intermittent, Less than 6 Hours Per Day (ICD-10-PCS; 2020-10-22)
DX: A41.9 Sepsis, unspecified organism (principal); U07.1 COVID-19; J12.89 Other viral pneumonia; I21.4 Non-ST elevation (NSTEMI) myocardial infarction; J80 Acute respiratory distress syndrome; R65.21 Severe sepsis with septic shock; N17.0 Acute kidney failure with tubular necrosis; E87.1 Hypo-osmolality and hyponatremia; I48.20 Chronic atrial fibrillation, unspecified; Z68.43 Body mass index [BMI] 50.0-59.9, adult; Z99.11 Dependence on respirator [ventilator] status; I50.20 Unspecified systolic (congestive) heart failure; D68.59 Other primary thrombophilia; E44.0 Moderate protein-calorie malnutrition; D61.818 Other pancytopenia; E87.2 Acidosis; I16.9 Hypertensive crisis, unspecified; E11.65 Type 2 diabetes mellitus with hyperglycemia; E78.5 Hyperlipidemia, unspecified; D72.810 Lymphocytopenia; E86.0 Dehydration; Z79.4 Long term (current) use of insulin; Z90.49 Acquired absence of other specified parts of digestive tract; E03.9 Hypothyroidism, unspecified; Z79.01 Long term (current) use of anticoagulants; Z82.49 Family history of ischemic heart disease and other diseases of the circulatory system; R79.82 Elevated C-reactive protein (CRP); E87.5 Hyperkalemia; E66.9 Obesity, unspecified; I11.0 Hypertensive heart disease with heart failure; R13.10 Dysphagia, unspecified; D63.8 Anemia in other chronic diseases classified elsewhere; Z66 Do not resuscitate
CPT/HCPCS: 36600; 82271; 82570; 82728; 82805; 83605; 83615; 83735; 84075; 84100; 84145; 84300; 85014; 85018; 85379; 85384; 85730; 86140; 86850; 86900; 86901; 86923; 86927; 87040; 87340; 87426; 87804; 93005; 93306; 93925; 93931; 93970; 94002; 94003; 94660; 96365; 99291; C9113; G0378; J0153; J0282; J0360; J0456; J0692; J0696; J0878; J0885; J1100; J1160; J1644; J1815; J1940; J2060; J2250; J2370; J2704; J3010; J3490; J3535; J7030; J7050; J7060; P9016; 36415-L1; 36415-TC; 71045-TC; U0003